=== PATIENT | female | born 1975 | race American Indian/Alaskan Native ===

== ENCOUNTER 2020-04-11 19:19 | Inpatient (IN) | payer MEDICAID ==
--- NOTE | 2020-04-11 19:57 | Emergency Department Report ---
ED Shortness of Breath HPI - General Stated Complaint: SANDRA Time Seen by Provider: 04/11/20 19:31 Source: patient Limitations: No Limitations - History of Present Illness Initial Comments: 45-year-old female with history of CHF, COPD on 2 L O2, DVT on Xarelto, presents to ED with shortness of breath. Patient states she has had dyspnea on exertion for 1.5 weeks, with associated orthopnea. Patient states she has been using breathing treatments without relief, thinks it may be her CHF. Patient reports mild cough. Patient denies fever, sore throat, chest pain, body aches, diarrhea, loss of smell or taste, exposure to anyone who has tested positive for COVID-19. PCP and filling technician: Maik MOREJON Complaint: shortness of breath -: week(s) (2) Severity: moderate Consistency: intermittent Improves With: rest, upright position Worsens With: lying flat, exertion Known History Of: COPD, congestive heart failure Treatments Prior to Arrival: bronchodilator - Related Data Home Oxygen Therapy: Yes Home Oxygen Amount: 2 Liters Allergies Allergy/AdvReac Type Severity Reaction Status Date / Time No Known Allergies Allergy Verified 04/11/20 22:16 ED Review of Systems ROS: Stated complaint: SANDRA Other details as noted in HPI Comment: All other systems reviewed and negative Constitutional: denies: chills, fever ENT: denies: throat pain Respiratory: cough, orthopnea, SOB with exertion Cardiovascular: denies: chest pain Gastrointestinal: denies: diarrhea Musculoskeletal: denies: myalgia ED Physical Exam - General General appearance: alert, in no apparent distress, obese - Head Head exam: Present: atraumatic, normocephalic - Eye Eye exam: Present: normal appearance, EOMI - ENT ENT exam: Present: mucous membranes moist - Neck Neck exam: Present: normal inspection - Respiratory Respiratory exam: Present: rales. Absent: respiratory distress - Cardiovascular Cardiovascular Exam: Present: regular rate, normal rhythm - GI/Abdominal GI/Abdominal exam: Present: soft. Absent: distended, tenderness - Extremities Exam Extremities exam: Present: normal inspection, pedal edema. Absent: calf tenderness - Neurological Exam Neurological exam: Present: alert, oriented X3 - Psychiatric Psychiatric exam: Present: normal affect, normal mood - Skin Skin exam: Present: warm, dry, intact, normal color ED Course Vital Signs 04/11/20 04/11/20 04/11/20 19:40 20:16 20:56 Temperature 99.0 F Pulse Rate 102 H 103 H 98 H Respiratory 20 26 H 22 Rate Blood Pressure 125/65 118/58 125/73 Blood Pressure 125/65 [Left] O2 Sat by Pulse 99 92 95 Oximetry 04/11/20 04/11/20 04/11/20 21:00 21:15 21:30 Temperature Pulse Rate 97 H 96 H 91 H Respiratory 23 21 22 Rate Blood Pressure 121/72 120/70 112/63 Blood Pressure [Left] O2 Sat by Pulse 93 100 99 Oximetry 04/11/20 04/11/20 04/11/20 21:46 22:00 22:46 Temperature Pulse Rate 96 H 89 92 H Respiratory 24 25 H 21 Rate Blood Pressure 112/63 126/76 120/75 Blood Pressure [Left] O2 Sat by Pulse 97 100 94 Oximetry 04/11/20 23:30 Temperature Pulse Rate 97 H Respiratory 19 Rate Blood Pressure 115/66 Blood Pressure [Left] O2 Sat by Pulse 95 Oximetry ED Medical Decision Making - Lab Data Result diagrams: 04/11/20 19:58 04/11/20 19:58 - EKG Data -: EKG Interpreted by Ar EKG shows normal: sinus rhythm, axis, intervals, QRS complexes, ST-T waves Rate: tachycardia (rate 101) - EKG Data Interpretation: no acute changes - Radiology Data Radiology results: report reviewed, image reviewed - Medical Decision Making 45 yo F w/ CHF exacerbation. Pt w/ MORALES, orthopnea. BNP elevated, pulm edema and effusion on CXR. Lasix given. Will admit to hospitalist, Dr [place], for further management. - Differential Diagnosis CHF, COPD, pneumonia Critical care attestation.: If time is entered above; I have spent that time in minutes in the direct care of this critically ill patient, excluding procedure time. ED Disposition Clinical Impression: Acute exacerbation of CHF (congestive heart failure) Disposition: OP ADMIT IP TO THIS HOSP Is pt being admited?: Yes Condition: Stable Time of Disposition: 21:25
[2020-04-11 20:14] LABS: Basophils % (Auto) 0.2 % (0.0-1.8); Eosinophils # (Auto) 0.1 K/mm3 (0.0-0.4); Eosinophils % (Auto) 1.7 % (0.0-4.3); Lymphocytes # (Auto) 1.2 K/mm3 (1.2-5.4); Lymphocytes % (Auto) 20.3 % (13.4-35.0); Mean Corpuscular HGB Conc 29 % (30-34); Mean Corpuscular Volume 82 fl (79-97); Monocytes # (Auto) 0.7 K/mm3 (0.0-0.8); Monocytes % (Auto) 11.1 % (0.0-7.3); Platelet Count 238 K/mm3 (140-440); Red Blood Count 4.09 M/mm3 (3.65-5.03); Red Cell Distribution Width 16.8 % (13.2-15.2)
[2020-04-11 20:16] LABS: Hematocrit 33.5 % (30.3-42.9); Hemoglobin 9.6 gm/dl (10.1-14.3)
[2020-04-11 20:27] LABS: INR 1.07 (0.87-1.13)
[2020-04-11 20:28] LABS: Partial Thromboplastin Time 28.6 Sec. (24.2-36.6)
[2020-04-11 20:36] LABS: BUN/Creatinine Ratio 21; Blood Urea Nitrogen 23 mg/dL (7-17); Calcium 8.8 mg/dL (8.4-10.2); Hemolysis Index 9
--- NOTE | 2020-04-11 20:56 | XRay Report ---
CHEST 1 VIEW INDICATION / CLINICAL INFORMATION: Shortness of breath. COMPARISON: None available. FINDINGS: SUPPORT DEVICES: None. HEART / MEDIASTINUM: Mild cardiomegaly. LUNGS / PLEURA: Hazy interstitial opacities in the lungs. No acute airspace consolidation. The pulmon zeus vessels are mildly prominent. Left diaphragm and costophrenic sulcus are poorly visualized. No pn eumothorax. IMPRESSION: Mild cardiomegaly and mild interstitial edema. A small left effusion is not excluded. Signer Name: Jacinto Fox MD Signed: 04/11/2020 8:51 PM Workstation Name: [id number]
[2020-04-11] MEDS ORDERED: FUROSEMIDE 40 MG/4 ML INJ IV ONE (21:13)
[2020-04-11] MEDS ORDERED: ONDANSETRON 4 MG/2 ML INJ IV PRN (22:01)
[2020-04-11] MEDS ORDERED: oxyCODONE /ACETAMINOPHEN 5-325MG TAB PO PRN (22:01)
--- NOTE | 2020-04-11 22:10 | History and Physical Report ---
History of Present Illness History of present illness: 45-year-old woman with a history of CHF, HIV, DVT on Xarelto, COPD comes emergency room for evaluation. The patient complains of shortness of breath for a little over 1 week associated with PND, orthopnea and dyspnea on exertion, decreased exercise tolerance. The patient has been noncompliant with her Lasix because it gives her cramping in her hands. Patient will be admitted for CHF ex acerbation, status post IV Lasix Review Of Systems: Constitutional: no weight loss, fever, chills Ears, eyes, nose, mouth and throat: no nasal congestion, no nasal discharge, no sinus pressure, blurry vision, diplopia Neck: No neck pain or rigidity. Cardiovascular: No palpitations, chest pain Respiratory: No cough Gastrointestinal: No hematochezia Genitourinary : no dysuria, frequency Musculoskeletal: no muscle ache , joint pain Integumentary: no rash, no pruritis Neurological: no parathesias, focal weakness Endocrine: no cold or heat intolerance, no polyuria or polydipsia Hematologic/Lymphatic: no easy bruising, no easy bleeding, no gland swelling Allergic/Immunologic: no urticaria, no angioedema. PAST MEDICAL HISTORY: CHF, HIV, DVT, COPD PAST SURGICAL HISTORY: Tumor removed from the chest SOCIAL HISTORY: Denies alcohol, tobacco, drugs FAMILY HISTORY: Hypertension Medications and Allergies Allergies Allergy/AdvReac Type Severity Reaction Status Date / Time No Known Allergies Allergy Verified 04/11/20 22:16 Active Meds: Active Medications Acetaminophen (Tylenol) 650 mg PO Q4H PRN PRN Reason: Pain MILD(1-3)/Fever >100.5/LEES Aspirin (Baby Aspirin) 81 mg PO DAILY [facility] Furosemide (Lasix) 40 mg IV BID@0600,1800 [facility] Ondansetron HCl (Zofran) 4 mg IV Q8H PRN PRN Reason: Nausea And Vomiting Oxycodone/Acetaminophen (Percocet 5/325) 1 tab PO Q6H PRN PRN Reason: Pain, Moderate (4-6) Sodium Chloride (Sodium Chloride Flush Syringe 10 Ml) 10 ml IV BID [facility] Sodium Chloride (Sodium Chloride Flush Syringe 10 Ml) 10 ml IV PRN PRN PRN Reason: LINE FLUSH Exam - Physical Exam Narrative exam: Gen. appearance: Patient lying in bed, no apparent distress HEENT: Normocephalic, atraumatic, pupils equally round and reactive to light, extraocular movement intact, and no sclericterus,. No JVD or thyromegaly or nodule,neck supple, no carotid bruit ,mucous membranes moist, no exudate or erythema Heart: S1, S2, regular rate and rhythm Lungs: Crackles bilaterally, breathing comfortable Abdomen: Positive bowel sounds, nontender, nondistended, no organomegaly Extremity: no edema, cyanosis, clubbing Skin: No rash, nodules, warm, dry Neuro: Cranial nerves II to XII intact, speech is fluent, moves extremities, sensory intact - Constitutional Vitals: Temp Pulse Resp BP Pulse Ox 99.0 F 96 H 24 112/63 97 04/11/20 19:40 04/11/20 21:46 04/11/20 21:46 04/11/20 21:46 04/11/20 21:46 HEART Score - HEART Score Troponin: Troponin T < 0.010 ng/mL (0.00-0.029) 04/11/20 19:58 Results - Labs CBC & Chem 7: 04/12/20 05:16 04/12/20 05:16 Labs: Abnormal lab results 04/11/20 04/11/20 Range/Units 19:58 19:58 Hgb 9.6 L (10.1-14.3) gm/dl MCH 24 L (28-32) pg MCHC 29 L (30-34) % RDW 16.8 H (13.2-15.2) % [place] % (Auto) 11.1 H (0.0-7.3) % Carbon Dioxide 35 H (22-30) mmol/L BUN 23 H (7-17) mg/dL Glucose 102 H (65-100) mg/dL NT-Pro-B Natriuret Pep 1101 H (0-450) pg/mL - Imaging and Cardiology EKG: image reviewed Chest x-ray: report reviewed Assessment and Plan Assessment Acute CHF exacerbation, probably diastolic dysfunction Diuresed with IV Lasix, start aspirin Monitor I's and O's, daily weights Check cardiac enzymes, echo, consult cardiology Blood pressure will not tolerate beta-trudi, DAVID inhibitor Noncompliance discussed with patient, verbalized understanding HIV, stable restart outpatient medications History of DVT, resume Xarelto DVT prophylax
[2020-04-12] MEDS: ACETAMINOPHEN 325 MG TAB PO PRN (02:34)
[2020-04-12] MEDS: ALBUTEROL 2.5 MG/3 ML NEBU IH PRN (02:51)
[2020-04-12 05:43] LABS: Basophils % (Auto) 0.8 % (0.0-1.8); Eosinophils # (Auto) 0.1 K/mm3 (0.0-0.4); Lymphocytes # (Auto) 1.3 K/mm3 (1.2-5.4); Lymphocytes % (Auto) 24.3 % (13.4-35.0); Mean Corpuscular HGB Conc 29 % (30-34); Mean Corpuscular Volume 81 fl (79-97); Monocytes # (Auto) 0.7 K/mm3 (0.0-0.8); Monocytes % (Auto) 12.3 % (0.0-7.3); Platelet Count 225 K/mm3 (140-440); Red Blood Count 4.25 M/mm3 (3.65-5.03); Red Cell Distribution Width 16.9 % (13.2-15.2)
[2020-04-12 05:59] LABS: Creatine Kinase MB 2.7 ng/mL (0.0-4.0)
[2020-04-12 06:17] LABS: Hematocrit 34.6 % (30.3-42.9)
[2020-04-12 06:22] LABS: BUN/Creatinine Ratio 20; Blood Urea Nitrogen 22 mg/dL (7-17); Hemolysis Index 6
[2020-04-12] MEDS: FUROSEMIDE 40 MG/4 ML INJ IV SCH ×2 (06:41→17:08)
[2020-04-12] MEDS ORDERED: RIVAROXABAN 10 MG TAB PO SCH (10:00)
[2020-04-12] MEDS: ASPIRIN 81 MG TAB CHEW PO SCH (10:13)
[2020-04-12] MEDS: ALBUTEROL 2.5 MG/3 ML NEBU IH SCH ×3 (10:31→21:17)
--- NOTE | 2020-04-12 11:11 | Consultation ---
Medications and Allergies Allergies Allergy/AdvReac Type Severity Reaction Status Date / Time No Known Allergies Allergy Verified 04/11/20 22:16 Active Meds: Active Medications Acetaminophen (Tylenol) 650 mg PO Q4H PRN PRN Reason: Pain MILD(1-3)/Fever >100.5/LEES Last Admin: 04/12/20 02:34 Dose: 650 mg Documented by: Albuterol (Proventil) 2.5 mg IH Q4HRT PRN PRN Reason: Shortness Of Breath Last Admin: 04/12/20 02:51 Dose: 2.5 mg Documented by: Albuterol (Proventil) 2.5 mg IH TIDRT [facility] Last Admin: 04/12/20 10:31 Dose: 2.5 mg Documented by: Aspirin (Baby Aspirin) 81 mg PO DAILY [facility] Last Admin: 04/12/20 10:13 Dose: 81 mg Documented by: Furosemide (Lasix) 40 mg IV BID@0600,1800 [facility] Last Admin: 04/12/20 06:41 Dose: 40 mg Documented by: Ondansetron HCl (Zofran) 4 mg IV Q8H PRN PRN Reason: Nausea And Vomiting Oxycodone/Acetaminophen (Percocet 5/325) 1 tab PO Q6H PRN PRN Reason: Pain, Moderate (4-6) Rivaroxaban (Xarelto) 10 mg PO QDAY [facility]; Protocol Last Admin: 04/12/20 10:13 Dose: 10 mg Documented by: Sodium Chloride (Sodium Chloride Flush Syringe 10 Ml) 10 ml IV BID [facility] Last Admin: 04/12/20 10:13 Dose: 10 ml Documented by: Sodium Chloride (Sodium Chloride Flush Syringe 10 Ml) 10 ml IV PRN PRN PRN Reason: LINE FLUSH Physical Examination Vital Signs Temp Pulse Resp BP Pulse Ox 99.0 F 102 H 20 125/65 99 04/11/20 19:40 04/11/20 19:40 04/11/20 19:40 04/11/20 19:40 04/11/20 19:40 Results 04/12/20 05:16 04/12/20 05:16 Cardiac Enzymes 04/11/20 04/12/20 Range/Units 22:32 05:16 CK-MB (CK-2) 3.0 2.7 (0.0-4.0) ng/mL Coagulation 04/11/20 Range/Units 19:58 PT 13.7 (12.2-14.9) Sec. INR 1.07 (0.87-1.13) APTT 28.6 (24.2-36.6) Sec. CBC 04/11/20 04/12/20 Range/Units 19:58 05:16 WBC 6.1 5.4 (4.5-11.0) K/mm3 RBC 4.09 4.25 (3.65-5.03) M/mm3 Hgb 9.6 L 10.0 L (10.1-14.3) gm/dl Hct 33.5 34.6 (30.3-42.9) % Plt Count 238 225 (140-440) K/mm3 Lymph # 1.2 1.3 (1.2-5.4) K/mm3 [place] # 0.7 0.7 (0.0-0.8) K/mm3 Eos # 0.1 0.1 (0.0-0.4) K/mm3 Baso # 0.0 0.0 (0.0-0.1) K/mm3 Comprehensive Metabolic Panel 04/11/20 04/12/20 Range/Units 19:58 05:16 Sodium 143 144 (137-145) mmol/L Potassium 4.9 4.8 (3.6-5.0) mmol/L Chloride 99.1 95.8 L (98-107) mmol/L Carbon Dioxide 35 H 40 H (22-30) mmol/L BUN 23 H 22 H (7-17) mg/dL Creatinine 1.1 1.1 (0.7-1.2) mg/dL Glucose 102 H 100 (65-100) mg/dL Calcium 8.8 9.0 (8.4-10.2) mg/dL Assessment and Plan pt seen and examined full consult dictated thx
--- NOTE | 2020-04-12 12:10 | Progress Note ---
Assessment and Plan Assessment and plan: --Acute on chronic diastolic CHF [preserved EF] Diuresed with IV Lasix, start aspirin Monitor I's and O's, daily weights Cardiology evaluation noted and appreciated Chest x-ray; mild cardiomegaly, mild interstitial edema Small left pleural effusion Echo; EF 60 to 65%, Mild concentric LVH Moderate pulmonary hypertension --HIV, stable resume antiretrovirals --History of DVT, resume Xarelto --Morbid obesity; BMI 66.2 Patient needs weight reduction when medically stable Patient would benefit by bariatric surgical consultation For weight reduction program upon discharge when stable --Obstructive sleep apnea; CPAP BiPAP at night --DVT prophylax; on Xarelto Monitor closely and adjust management as needed Plan of care reviewed with the patient and her nurse History Interval history: Patient seen and examined at the bedside this morning Patient's chart and medications reviewed Admitted with worsening shortness of breath acute on chronic CHF Patient feels slightly better continues to have shortness of breath Vital signs reviewed Hospitalist Physical - Constitutional Vitals: Temp Pulse Resp BP Pulse Ox 98.6 F 87 20 119/69 96 04/12/20 07:37 04/12/20 10:31 04/12/20 10:31 04/12/20 07:37 04/12/20 10:31 General appearance: Present: mild distress, well-nourished, obese (Morbidly obese) - EENT Eyes: Present: PERRL, EOM intact - Neck Neck: Present: supple, normal ROM - Respiratory Respiratory effort: normal Respiratory: bilateral: diminished, rhonchi, negative: rales, wheezing - Cardiovascular Rhythm: regular Heart Sounds: Present: S1 & S2 - Extremities Extremities: no ischemia Extremity abnormal: edema - Abdominal General gastrointestinal: soft, non-tender, non-distended, normal bowel sounds - Integumentary Integumentary: Present: clear, warm - Psychiatric Psychiatric: appropriate mood/affect, cooperative - Neurologic Neurologic: CNII-XII intact, moves all extremities HEART Score - HEART Score Troponin: Troponin T < 0.010 ng/mL (0.00-0.029) 04/12/20 05:16 Results - Labs CBC & Chem 7: 04/12/20 05:16 04/12/20 05:16 Labs: Laboratory Last Values WBC 5.4 K/mm3 (4.5-11.0) 04/12/20 05:16 RBC 4.25 M/mm3 (3.65-5.03) 04/12/20 05:16 Hgb 10.0 gm/dl (10.1-14.3) L 04/12/20 05:16 Hct 34.6 % (30.3-42.9) 04/12/20 05:16 MCV 81 fl (79-97) 04/12/20 05:16 MCH 24 pg (28-32) L 04/12/20 05:16 MCHC 29 % (30-34) L 04/12/20 05:16 RDW 16.9 % (13.2-15.2) H 04/12/20 05:16 Plt Count 225 K/mm3 (140-440) 04/12/20 05:16 Lymph % (Auto) 24.3 % (13.4-35.0) 04/12/20 05:16 [place] % (Auto) 12.3 % (0.0-7.3) H 04/12/20 05:16 Eos % (Auto) 2.0 % (0.0-4.3) 04/12/20 05:16 Baso % (Auto) 0.8 % (0.0-1.8) 04/12/20 05:16 Lymph # 1.3 K/mm3 (1.2-5.4) 04/12/20 05:16 [place] # 0.7 K/mm3 (0.0-0.8) 04/12/20 05:16 Eos # 0.1 K/mm3 (0.0-0.4) 04/12/20 05:16 Baso # 0.0 K/mm3 (0.0-0.1) 04/12/20 05:16 Seg Neutrophils % 60.6 % (40.0-70.0) 04/12/20 05:16 Seg Neutrophils # 3.3 K/mm3 (1.8-7.7) 04/12/20 05:16 PT 13.7 Sec. (12.2-14.9) 04/11/20 19:58 INR 1.07 (0.87-1.13) 04/11/20 19:58 APTT 28.6 Sec. (24.2-36.6) 04/11/20 19:58 Sodium 144 mmol/L (137-145) 04/12/20 05:16 Potassium 4.8 mmol/L (3.6-5.0) 04/12/20 05:16 Chloride 95.8 mmol/L (98-107) L 04/12/20 05:16 Carbon Dioxide 40 mmol/L (22-30) H 04/12/20 05:16 Anion Gap 13 mmol/L 04/12/20 05:16 BUN 22 mg/dL (7-17) H 04/12/20 05:16 Creatinine 1.1 mg/dL (0.7-1.2) 04/12/20 05:16 Estimated GFR > 60 ml/min 04/12/20 05:16 BUN/Creatinine Ratio 20 % 04/12/20 05:16 Glucose 100 mg/dL (65-100) 04/12/20 05:16 Calcium 9.0 mg/dL (8.4-10.2) 04/12/20 05:16 Total Creatine Kinase 78 units/L (30-135) 04/12/20 05:16 CK-MB (CK-2) 2.7 ng/mL (0.0-4.0) 04/12/20 05:16 CK-MB (CK-2) Rel Index 3.4 (0-4) 04/12/20 05:16 Troponin T < 0.010 ng/mL (0.00-0.029) 04/12/20 05:16 NT-Pro-B Natriuret Pep 1101 pg/mL (0-450) H 04/11/20 19:58 - Diagnostic Impressions Diagnostic Impressions: Echocardiogram 04/11/20 22:08 Transthoracic Echocardiogram Indication: Left Ventricle Function BP: 119/78 Conclusions *Mild concentric left ventricular hypertrophy is observed. *The estimated ejection fraction is 60-65%. *Abnormal left ventricular diastolic filling is observed, consistent with impaired relaxation. *The right ventricle is mildly dilated. *There is evidence of moderate pulmonary hypertension. *The right ventricular systolic pressure is calculated at 68 mmHg. *The pericardium appears normal. *There is mild to moderate mitral regurgitation. Findings Left Ventricle: The left ventricular chamber size is normal. Mild concentric left ventricular hypertrophy is observed. The estimated ejection fraction is 60-65%. Abnormal left ventricular diastolic function is observed. Abnormal left ventricular diastolic filling is observed, consistent with impaired relaxation. Left Atrium: The left atrium is normal in size with no visual thrombus identified. Right Ventricle: The right ventricle is mildly dilated. The right ventricular global systolic function is normal. Flattened in systole consistent with right ventricular pressure overload. Right Atrium: The right atrium is mildly dilated. Aortic Valve: The aortic valve is trileaflet. The leaflets are thin with normal excursion. There is no aortic stenosis or regurgitation present. Mitral Valve: The mitral valve leaflets are mildly thickened. There is mild to moderate mitral regurgitation. There is no evidence of mitral stenosis. Tricuspid Valve: The tricuspid valve leaflets are normal. There is moderate tricuspid regurgitation. The right ventricular systolic pressure is calculated at 68 mmHg. There is evidence of moderate pulmonary hypertension. Pulmonic Valve: The pulmonic valve appears normal. There is mild pulmonic regurgitation. There is no pulmonic stenosis. Pericardium: The pericardium appears normal. Aorta: The aorta appears normal. Pulmonary Artery: The main pulmonary artery appears normal. Venous: The inferior vena cava is dilated. There is a greater than 50% respiratory change in the inferior vena cava dimension. Measurements Chambers 2D Name Value Normal Range IVSd (2D) 1.13 cm (0.6 - 1.1) LVPWd (2D) 1.14 cm (0.6 - 1.1) LVIDd (2D) 4.66 cm (3.7 - 5.6) LVIDs (2D) 3.17 cm (2 - 3.8) LV FS (2D) 32.02 % - EF Teichholz (2D) 60.17 % - Ao root diameter (2D) 3.3 cm (2 - 3.7) Volumes/Mass Name Value Normal Range LA ESV SP 4CH (A/L) 62.29 ml - LA ESV SP 2CH (A/L) 96.38 ml - LA ESV BP (A/L) 77.66 ml - LA ESV BP (A/L) index 32.36 ml/m2 - LA ESV SP 4CH (MOD) 59.11 ml - LA ESV SP 2CH (MOD) 91.23 ml - LA ESV BP (MOD) 30.63 ml - LA ESV BP (MOD) index 73.63 ml/m2 - LV EDV SP 4CH (MOD) 128.25 ml - LV ESV SP 4CH (MOD) 46.14 ml - EF SP 4CH (MOD) 64.03 % - LV EDV SP 2CH (MOD) 120.45 ml - LV ESV SP 2CH (MOD) 49.64 ml - EF SP 2CH (MOD) 58.78 % - LV EDV BP 125.44 ml - LV ESV BP 47.91 ml - BP EF (MOD) 61.81 % - Diastolic/Systolic Function Name Value Normal Range MV E-wave Vmax 1.02 m/sec - MV deceleration time 130.3 msec - MV A-wave Vmax 1.19 m/sec - MV E:A ratio 0.85 ratio - Aortic Valve Name Value Normal Range AV Vmax 1.59 m/sec - AV VTI 26.86 cm - AV peak gradient 10.08 mmHg - AV mean gradient 5.68 mmHg - LVOT diameter 2 cm - LVOT Vmax 1.19 m/sec - LVOT VTI 21.31 cm - LVOT peak gradient 5.65 mmHg - LVOT mean gradient 2.84 mmHg - SV LVOT 66.74 ml - HARINDER (continuity Vmax) 2.34 cm2 - HARINDER (continuity VTI) 2.49 cm2 - Ascending Ao 3.19 cm - Tricuspid Valve Name Value Normal Range TV E-wave Vmax 0.69 m/sec - TR Vmax 3.9 m/sec - TR peak gradient 60.7 mmHg - RAP 8 mmHg - RVSP 68 mmHg - Pulmonic Valve/Qp:Qs Name Value Normal Range PV Vmax 1.43 m/sec - PV peak gradient 8.22 mmHg - [place] end-diastolic Vmax 1.74 m/sec - RVOT Vmax 0.82 m/sec - RVOT VTI 14.45 cm - RVOT peak gradient 2.66 mmHg - PV acceleration time 102.76 msec - Hirsch/IV: Voiding Method Toilet IV Catheter Type [Left Wrist] INT / Saline Lock Active Medications - Current Medications Current Medications: Generic Name Dose Route Start Last Admin Trade Name Freq PRN Reason Stop Dose Admin Acetaminophen 650 mg 04/11/20 22:01 04/12/20 02:34 Tylenol PO 650 mg Q4H PRN Administration Pain MILD(1-3)/Fever >100.5/LEES Albuterol 2.5 mg 04/12/20 02:33 04/12/20 02:51 Proventil IH 2.5 mg Q4HRT PRN Administration Shortness Of Breath Albuterol 2.5 mg 04/12/20 08:00 04/12/20 10:31 Proventil IH 2.5 mg TIDRT [facility] Administration Aspirin 81 mg 04/12/20 10:00 04/12/20 10:13 Baby Aspirin PO 81 mg DAILY [facility] Administration Furosemide 40 mg 04/12/20 06:00 04/12/20 06:41 Lasix IV 40 mg BID@0600,1800 [facility] Administration Ondansetron HCl 4 mg 04/11/20 22:01 Zofran IV Q8H PRN Nausea And Vomiting Oxycodone/Acetaminophen 1 tab 04/11/20 22:01 Percocet 5/325 PO Q6H PRN Pain, Moderate (4-6) Rivaroxaban 10 mg 04/12/20 10:00 04/12/20 10:13 Xarelto PO 10 mg QDAY [facility] Administration Protocol Sodium Chloride 10 ml 04/12/20 10:00 04/12/20 10:13 Sodium Chloride Flush Syringe 10 Ml IV 10 ml BID [facility] Administration Sodium Chloride 10 ml 04/11/20 22:01 Sodium Chloride Flush Syringe 10 Ml IV PRN PRN LINE FLUSH
--- NOTE | 2020-04-12 12:17 | Consultation ---
CARDIOLOGY CONSULTATION REASON FOR CONSULTATION: Advice and opinion regarding CHF. HISTORY OF PRESENT ILLNESS: The patient is a pleasant 45-year-old female with history of HIV, congestive heart failure, COPD, DVT, presents here for cardiac evaluation. She is usually seen at [place]. She has been recently noncompliant with her medications. She states she has had an enlarged heart in the past, on Xarelto for DVT. The patient complains of shortness of breath for over a week. She denies any chest pain. No abdominal pain, hematochezia, melena or hemoptysis. No rashes, blurred vision. Mild fatigue. PAST MEDICAL HISTORY: Congestive heart failure of unclear etiology, HIV, DVT, and COPD. PAST SURGICAL HISTORY: Tumor removed from chest, unclear details. SOCIAL HISTORY: Denies smoking or drinking. ALLERGIES: No known drug, food, or environmental allergies. FAMILY HISTORY: Hypertension. PHYSICAL EXAMINATION: VITAL SIGNS: Blood pressure is 119/69, the patient is afebrile. Tele reveals sinus rhythm in the 90s. No dysrhythmias. O2 sat is 99% on room air. GENERAL: This is a young -[place] female, in no apparent distress, oriented x3. HEENT: Sclerae are anicteric. NECK: Supple, no masses, no JVD. CHEST: Decreased breath sounds bilateral bases. Overall, moderate air movement. CARDIOVASCULAR: Regular, S1 and S2. ABDOMEN: Soft, nontender, and nondistended. Normoactive bowel sounds in 4 quadrants. No mass or bruits. EXTREMITIES: No cyanosis, clubbing, or edema. Good peripheral pulses. SKIN: Intact. No rashes. IMAGING STUDIES: Echocardiogram reveals EF of 60-65%, diastolic dysfunction, moderate pulmonary hypertension, [id number] mitral regurgitation. Chest x-ray from the Emergency Room reveals bilateral mild interstitial edema. No bony abnormalities. LABORATORY DATA: Reviewed. Troponin negative x2. MEDICATIONS: Inpatient and outpatient medications reviewed. ASSESSMENT: In summary, the patient is a pleasant 45-year-old female with acute on chronic heart failure with preserved ejection fraction, agree with IV Lasix, already on low dose Xarelto for history of deep venous thrombosis. We will watch her on Tele. Consider low dose AV trudi. Discussed the importance of lifestyle changes. Low salt diet and so forth, monitor I's and O's, daily weights. Blood pressure has been somewhat soft. We will continue to monitor. If it improves, we will consider adding calcium channel trudi for heart rate control. Thank you for this consultation. We will be happy to follow along with you. JOB# [id number] SBM/NTS
[2020-04-12] MEDS: carvediloL 12.5 MG TAB PO SCH (22:20)
[2020-04-13] MEDS: ACETAMINOPHEN 325 MG TAB PO PRN (02:11)
[2020-04-13] MEDS: ALBUTEROL 2.5 MG/3 ML NEBU IH PRN ×2 (04:14→23:20)
[2020-04-13] MEDS: FUROSEMIDE 40 MG/4 ML INJ IV SCH ×2 (06:28→17:12)
[2020-04-13] MEDS: ALBUTEROL 2.5 MG/3 ML NEBU IH SCH ×4 (07:34→20:42)
[2020-04-13] MEDS: carvediloL 12.5 MG TAB PO SCH ×2 (09:25→21:32)
[2020-04-13] MEDS: ASPIRIN 81 MG TAB CHEW PO SCH (09:25)
[2020-04-13] MEDS: SULFAMETHOXAZOLE/TRIMETHOPRIM 800/160MG DS TAB PO SCH (09:29)
[2020-04-13] MEDS: RIVAROXABAN 10 MG TAB PO SCH (09:30)
[2020-04-13] MEDS ORDERED: TENOFOV ALAFENAM PO SCH (10:00)
[2020-04-13] MEDS ORDERED: DOLUTEGRAVIR 50 MG TAB PO SCH (10:00)
[2020-04-13] MEDS ORDERED: EMTRICITABINE PO SCH (10:00)
--- NOTE | 2020-04-13 10:28 | Progress Note ---
Assessment and Plan clinically improving HFrEF w/ mod pHTN ?I/Os but swelling improved tte reviewed w/ pt cont IV lasix cont bb/noac (h/o DVT) wean o2 ambulate will now start avb due to soft bp - Patient Problems (1) Acute exacerbation of CHF (congestive heart failure) Current Visit: Yes Status: Acute Subjective Date of service: 04/13/20 Interval history: feels better, less sob Objective Vital Signs Temp Pulse Pulse Pulse Pulse Resp Resp 04/13/20 10:00 86 04/13/20 09:25 95 H 04/13/20 08:42 04/13/20 07:34 95 H 90 18 04/13/20 07:27 98.7 F 82 22 04/13/20 04:16 89 87 18 04/13/20 04:09 98.5 F 80 24 04/13/20 02:11 20 04/12/20 23:31 98.7 F 84 18 04/12/20 22:25 94 H 20 04/12/20 22:20 94 H 04/12/20 21:19 105 H 20 04/12/20 20:21 97.7 F 94 H 24 04/12/20 19:52 108 H 04/12/20 16:19 98.2 F 95 H 20 04/12/20 13:33 86 20 04/12/20 12:25 98.4 F 94 H 20 04/12/20 10:31 87 20 Resp BP Pulse Ox 04/13/20 10:00 04/13/20 09:25 100/59 04/13/20 08:42 94 04/13/20 07:34 18 04/13/20 07:27 100/59 92 04/13/20 04:16 18 04/13/20 04:09 107/59 95 04/13/20 02:11 04/12/20 23:31 108/53 90 04/12/20 22:25 100 04/12/20 22:20 130/81 04/12/20 21:19 97 04/12/20 20:21 130/81 96 04/12/20 19:52 04/12/20 16:19 136/77 92 04/12/20 13:33 04/12/20 12:25 139/76 96 04/12/20 10:31 96 - Imaging and Cardiology EKG: image reviewed
--- NOTE | 2020-04-13 11:16 | Progress Note ---
Assessment and Plan Assessment and plan: --Acute on chronic diastolic CHF [preserved EF] Diuresed with IV Lasix, start aspirin Monitor I's and O's, daily weights Cardiology evaluation noted and appreciated Chest x-ray; mild cardiomegaly, mild interstitial edema Small left pleural effusion Echo; EF 60 to 65%, Mild concentric LVH Moderate pulmonary hypertension --HIV, stable resume antiretrovirals --History of DVT, resume Xarelto --Morbid obesity; BMI 66.2 Patient needs weight reduction when medically stable Patient would benefit by bariatric surgical consultation For weight reduction program upon discharge when stable --Obstructive sleep apnea; CPAP BiPAP at night --DVT prophylax; on Xarelto Monitor closely and adjust management as needed Plan of care reviewed with the patient and her nurse History Interval history: Patient seen and examined at the bedside this morning Patient's chart and medications reviewed Feels slightly better, still has shortness of breath Alert awake oriented Vital signs reviewed Hospitalist Physical - Constitutional Vitals: Temp Pulse Resp BP Pulse Ox 98.7 F 86 22 100/59 94 04/13/20 07:27 04/13/20 10:40 04/13/20 10:40 04/13/20 09:25 04/13/20 08:42 General appearance: Present: no acute distress, well-nourished, obese (Morbidly obese) - EENT Eyes: Present: PERRL, EOM intact - Neck Neck: Present: supple, normal ROM - Respiratory Respiratory effort: normal Respiratory: bilateral: diminished, negative: rales, rhonchi, wheezing - Cardiovascular Rhythm: regular Heart Sounds: Present: S1 & S2 - Extremities Extremities: no ischemia, No edema - Abdominal General gastrointestinal: soft, non-tender, non-distended, normal bowel sounds - Integumentary Integumentary: Present: clear, warm - Psychiatric Psychiatric: appropriate mood/affect, cooperative - Neurologic Neurologic: CNII-XII intact, moves all extremities HEART Score - HEART Score Troponin: Troponin T < 0.010 ng/mL (0.00-0.029) 04/12/20 05:16 Results - Labs CBC & Chem 7: 04/12/20 05:16 04/12/20 05:16 Labs: Laboratory Last Values WBC 5.4 K/mm3 (4.5-11.0) 04/12/20 05:16 RBC 4.25 M/mm3 (3.65-5.03) 04/12/20 05:16 Hgb 10.0 gm/dl (10.1-14.3) L 04/12/20 05:16 Hct 34.6 % (30.3-42.9) 04/12/20 05:16 MCV 81 fl (79-97) 04/12/20 05:16 MCH 24 pg (28-32) L 04/12/20 05:16 MCHC 29 % (30-34) L 04/12/20 05:16 RDW 16.9 % (13.2-15.2) H 04/12/20 05:16 Plt Count 225 K/mm3 (140-440) 04/12/20 05:16 Lymph % (Auto) 24.3 % (13.4-35.0) 04/12/20 05:16 White % (Auto) 12.3 % (0.0-7.3) H 04/12/20 05:16 Eos % (Auto) 2.0 % (0.0-4.3) 04/12/20 05:16 Baso % (Auto) 0.8 % (0.0-1.8) 04/12/20 05:16 Lymph # 1.3 K/mm3 (1.2-5.4) 04/12/20 05:16 White # 0.7 K/mm3 (0.0-0.8) 04/12/20 05:16 Eos # 0.1 K/mm3 (0.0-0.4) 04/12/20 05:16 Baso # 0.0 K/mm3 (0.0-0.1) 04/12/20 05:16 Seg Neutrophils % 60.6 % (40.0-70.0) 04/12/20 05:16 Seg Neutrophils # 3.3 K/mm3 (1.8-7.7) 04/12/20 05:16 PT 13.7 Sec. (12.2-14.9) 04/11/20 19:58 INR 1.07 (0.87-1.13) 04/11/20 19:58 APTT 28.6 Sec. (24.2-36.6) 04/11/20 19:58 Sodium 144 mmol/L (137-145) 04/12/20 05:16 Potassium 4.8 mmol/L (3.6-5.0) 04/12/20 05:16 Chloride 95.8 mmol/L (98-107) L 04/12/20 05:16 Carbon Dioxide 40 mmol/L (22-30) H 04/12/20 05:16 Anion Gap 13 mmol/L 04/12/20 05:16 BUN 22 mg/dL (7-17) H 04/12/20 05:16 Creatinine 1.1 mg/dL (0.7-1.2) 04/12/20 05:16 Estimated GFR > 60 ml/min 04/12/20 05:16 BUN/Creatinine Ratio 20 % 04/12/20 05:16 Glucose 100 mg/dL (65-100) 04/12/20 05:16 Calcium 9.0 mg/dL (8.4-10.2) 04/12/20 05:16 Total Creatine Kinase 78 units/L (30-135) 04/12/20 05:16 CK-MB (CK-2) 2.7 ng/mL (0.0-4.0) 04/12/20 05:16 CK-MB (CK-2) Rel Index 3.4 (0-4) 04/12/20 05:16 Troponin T < 0.010 ng/mL (0.00-0.029) 04/12/20 05:16 NT-Pro-B Natriuret Pep 1101 pg/mL (0-450) H 04/11/20 19:58 - Diagnostic Impressions Diagnostic Impressions: Echocardiogram 04/11/20 22:08 Transthoracic Echocardiogram Indication: Left Ventricle Function BP: 119/78 Conclusions *Mild concentric left ventricular hypertrophy is observed. *The estimated ejection fraction is 60-65%. *Abnormal left ventricular diastolic filling is observed, consistent with impaired relaxation. *The right ventricle is mildly dilated. *There is evidence of moderate pulmonary hypertension. *The right ventricular systolic pressure is calculated at 68 mmHg. *The pericardium appears normal. *There is mild to moderate mitral regurgitation. Findings Left Ventricle: The left ventricular chamber size is normal. Mild concentric left ventricular hypertrophy is observed. The estimated ejection fraction is 60-65%. Abnormal left ventricular diastolic function is observed. Abnormal left ventricular diastolic filling is observed, consistent with impaired relaxation. Left Atrium: The left atrium is normal in size with no visual thrombus identified. Right Ventricle: The right ventricle is mildly dilated. The right ventricular global systolic function is normal. Flattened in systole consistent with right ventricular pressure overload. Right Atrium: The right atrium is mildly dilated. Aortic Valve: The aortic valve is trileaflet. The leaflets are thin with normal excursion. There is no aortic stenosis or regurgitation present. Mitral Valve: The mitral valve leaflets are mildly thickened. There is mild to moderate mitral regurgitation. There is no evidence of mitral stenosis. Tricuspid Valve: The tricuspid valve leaflets are normal. There is moderate tricuspid regurgitation. The right ventricular systolic pressure is calculated at 68 mmHg. There is evidence of moderate pulmonary hypertension. Pulmonic Valve: The pulmonic valve appears normal. There is mild pulmonic regurgitation. There is no pulmonic stenosis. Pericardium: The pericardium appears normal. Aorta: The aorta appears normal. Pulmonary Artery: The main pulmonary artery appears normal. Venous: The inferior vena cava is dilated. There is a greater than 50% respiratory change in the inferior vena cava dimension. Measurements Chambers 2D Name Value Normal Range IVSd (2D) 1.13 cm (0.6 - 1.1) LVPWd (2D) 1.14 cm (0.6 - 1.1) LVIDd (2D) 4.66 cm (3.7 - 5.6) LVIDs (2D) 3.17 cm (2 - 3.8) LV FS (2D) 32.02 % - EF Teichholz (2D) 60.17 % - Ao root diameter (2D) 3.3 cm (2 - 3.7) Volumes/Mass Name Value Normal Range LA ESV SP 4CH (A/L) 62.29 ml - LA ESV SP 2CH (A/L) 96.38 ml - LA ESV BP (A/L) 77.66 ml - LA ESV BP (A/L) index 32.36 ml/m2 - LA ESV SP 4CH (MOD) 59.11 ml - LA ESV SP 2CH (MOD) 91.23 ml - LA ESV BP (MOD) 30.63 ml - LA ESV BP (MOD) index 73.63 ml/m2 - LV EDV SP 4CH (MOD) 128.25 ml - LV ESV SP 4CH (MOD) 46.14 ml - EF SP 4CH (MOD) 64.03 % - LV EDV SP 2CH (MOD) 120.45 ml - LV ESV SP 2CH (MOD) 49.64 ml - EF SP 2CH (MOD) 58.78 % - LV EDV BP 125.44 ml - LV ESV BP 47.91 ml - BP EF (MOD) 61.81 % - Diastolic/Systolic Function Name Value Normal Range MV E-wave Vmax 1.02 m/sec - MV deceleration time 130.3 msec - MV A-wave Vmax 1.19 m/sec - MV E:A ratio 0.85 ratio - Aortic Valve Name Value Normal Range AV Vmax 1.59 m/sec - AV VTI 26.86 cm - AV peak gradient 10.08 mmHg - AV mean gradient 5.68 mmHg - LVOT diameter 2 cm - LVOT Vmax 1.19 m/sec - LVOT VTI 21.31 cm - LVOT peak gradient 5.65 mmHg - LVOT mean gradient 2.84 mmHg - SV LVOT 66.74 ml - HARINDER (continuity Vmax) 2.34 cm2 - HARINDER (continuity VTI) 2.49 cm2 - Ascending Ao 3.19 cm - Tricuspid Valve Name Value Normal Range TV E-wave Vmax 0.69 m/sec - TR Vmax 3.9 m/sec - TR peak gradient 60.7 mmHg - RAP 8 mmHg - RVSP 68 mmHg - Pulmonic Valve/Qp:Qs Name Value Normal Range PV Vmax 1.43 m/sec - PV peak gradient 8.22 mmHg - TX end-diastolic Vmax 1.74 m/sec - RVOT Vmax 0.82 m/sec - RVOT VTI 14.45 cm - RVOT peak gradient 2.66 mmHg - PV acceleration time 102.76 msec - Hirsch/IV: Voiding Method Toilet IV Catheter Type [Left Wrist] INT / Saline Lock Active Medications - Current Medications Current Medications: Generic Name Dose Route Start Last Admin Trade Name Freq PRN Reason Stop Dose Admin Acetaminophen 650 mg 04/11/20 22:01 04/13/20 02:11 Tylenol PO 650 mg Q4H PRN Administration Pain MILD(1-3)/Fever >100.5/LEES Albuterol 2.5 mg 04/12/20 02:33 04/13/20 04:14 Proventil IH 2.5 mg Q4HRT PRN Administration Shortness Of Breath Albuterol 2.5 mg 04/12/20 08:00 04/13/20 10:38 Proventil IH 2.5 mg TIDRT LAWRENCE Administration Aspirin 81 mg 04/12/20 10:00 04/13/20 09:25 Baby Aspirin PO 81 mg DAILY LAWRENCE Administration Carvedilol 12.5 mg 04/12/20 22:00 04/13/20 09:25 Coreg PO 12.5 mg BID LAWRENCE Administration Furosemide 40 mg 04/12/20 06:00 04/13/20 06:28 Lasix IV 40 mg BID@0600,1800 LAWRENCE Administration Miscellaneous Medication 200 mg 04/13/20 10:00 Emtricitabine/Tenofov Alafenam [Descovy 200-25 Mg Tablet] PO DAILY LAWRENCE Ondansetron HCl 4 mg 04/11/20 22:01 Zofran IV Q8H PRN Nausea And Vomiting Oxycodone/Acetaminophen 1 tab 04/11/20 22:01 Percocet 5/325 PO Q6H PRN Pain, Moderate (4-6) Rivaroxaban 10 mg 04/13/20 10:00 04/13/20 09:30 Xarelto PO 10 mg QDAY LAWRENCE Administration Protocol Sodium Chloride 10 ml 04/12/20 10:00 04/13/20 09:26 Sodium Chloride Flush Syringe 10 Ml IV 10 ml BID LAWRENCE Administration Sodium Chloride 10 ml 04/11/20 22:01 Sodium Chloride Flush Syringe 10 Ml IV PRN PRN LINE FLUSH Trimethoprim/Sulfamethoxazole 1 each 04/13/20 10:00 04/13/20 09:29 Bactrim Ds PO 1 each DAILY LAWRENCE Administration
[2020-04-14] MEDS: FUROSEMIDE 40 MG/4 ML INJ IV SCH ×2 (06:26→18:02)
[2020-04-14] MEDS: ALBUTEROL 2.5 MG/3 ML NEBU IH SCH ×3 (07:31→20:31)
[2020-04-14] MEDS: RIVAROXABAN 10 MG TAB PO SCH (09:06)
[2020-04-14] MEDS: carvediloL 12.5 MG TAB PO SCH ×2 (09:07→21:15)
[2020-04-14] MEDS: SULFAMETHOXAZOLE/TRIMETHOPRIM 800/160MG DS TAB PO SCH (09:07)
[2020-04-14] MEDS: ASPIRIN 81 MG TAB CHEW PO SCH (09:07)
--- NOTE | 2020-04-14 11:52 | Progress Note ---
Assessment and Plan clinically improving HFrEF w/ mod pHTN * near euvolemia * will check v/q scan in am to exclude chronic thrombo-embolic disease in the milieu of DVT history/pHTN * on noac (dvt dosing) ?I/Os but swelling improved cont IV lasix cont bb/noac (h/o DVT) wean o2 ambulate will not start avb due to soft bp pt eval (pt on home o2) - Patient Problems (1) Acute exacerbation of CHF (congestive heart failure) Current Visit: Yes Status: Acute Subjective Date of service: 04/14/20 Interval history: feels better than yest, less sob Objective Vital Signs Temp Pulse Pulse Pulse Resp Resp BP 04/14/20 10:00 86 20 04/14/20 09:07 86 105/56 04/14/20 07:45 93 H 19 04/14/20 07:41 97.9 F 86 18 105/56 04/14/20 07:05 98 H 04/14/20 04:01 98.0 F 93 H 19 132/78 04/13/20 23:33 94 H 20 04/13/20 23:28 98.4 F 80 18 128/56 04/13/20 22:35 92 H 20 04/13/20 21:32 92 H 134/93 04/13/20 20:43 04/13/20 20:42 92 H 18 04/13/20 19:37 98.4 F 94 H 18 134/93 04/13/20 19:24 98 H 04/13/20 16:05 98.5 F 85 20 110/70 04/13/20 15:14 85 04/13/20 14:30 83 18 04/13/20 12:36 98.8 F 87 20 125/69 Pulse Ox 04/14/20 10:00 96 04/14/20 09:07 04/14/20 07:45 94 04/14/20 07:41 98 04/14/20 07:05 04/14/20 04:01 73 L 04/13/20 23:33 04/13/20 23:28 95 04/13/20 22:35 94 04/13/20 21:32 04/13/20 20:43 94 04/13/20 20:42 04/13/20 19:37 96 04/13/20 19:24 04/13/20 16:05 93 04/13/20 15:14 04/13/20 14:30 04/13/20 12:36 92 - Imaging and Cardiology EKG: image reviewed
--- NOTE | 2020-04-14 18:49 | Progress Note ---
Assessment and Plan Assessment and plan: --Acute on chronic diastolic CHF [preserved EF] Diuresed with IV Lasix, start aspirin Monitor I's and O's, daily weights Cardiology evaluation noted and appreciated Chest x-ray; mild cardiomegaly, mild interstitial edema Small left pleural effusion Echo; EF 60 to 65%, Mild concentric LVH Moderate pulmonary hypertension --HIV, stable resume antiretrovirals --History of DVT, resume Xarelto Patient has pulmonary hypertension Probably secondary to chronic PE We will check CTA chest tomorrow --Morbid obesity; BMI 66.2 Patient needs weight reduction when medically stable Patient would benefit by bariatric surgical consultation For weight reduction program upon discharge when stable --Obstructive sleep apnea; CPAP BiPAP at night --DVT prophylax; on Xarelto Monitor closely and adjust management as needed Plan of care reviewed with the patient and her nurse Brief history; 45-year-old morbidly obese female patient with chronic diastolic CHF, HIV, DVT on Xarelto, COPD was admitted through emergency room with worsening shortness of breath orthopnea, paroxysmal nocturnal dyspnea, patient was admitted managed appropriately, evaluated by cardiology, medications optimized, echo revealed moderate pulmonary hypertension in the setting of positive DVT on Coumadin. Possible chronic PE, check CTA chest tomorrow. History Interval history: Patient is seen and examined at the bedside, Patient's chart and medications reviewed Morbidly obese female patient Complains of mild shortness of breath And fatigue, denies chest pain Vital signs noted Hospitalist Physical - Constitutional Vitals: Temp Pulse Resp BP Pulse Ox 97.9 F 86 18 121/59 94 04/14/20 11:35 04/14/20 14:03 04/14/20 14:03 04/14/20 13:44 04/14/20 11:35 General appearance: Present: no acute distress, well-nourished, obese (Morbidly obese) - EENT Eyes: Present: PERRL, EOM intact - Neck Neck: Present: supple, normal ROM - Respiratory Respiratory effort: normal Respiratory: bilateral: diminished, negative: rales, rhonchi, wheezing - Cardiovascular Rhythm: regular Heart Sounds: Present: S1 & S2 - Extremities Extremities: no ischemia, No edema Extremity abnormal: edema - Abdominal General gastrointestinal: soft, non-tender, non-distended, normal bowel sounds - Integumentary Integumentary: Present: clear, warm - Psychiatric Psychiatric: appropriate mood/affect, cooperative - Neurologic Neurologic: CNII-XII intact, moves all extremities HEART Score - HEART Score Troponin: Troponin T < 0.010 ng/mL (0.00-0.029) 04/12/20 05:16 Results - Labs CBC & Chem 7: 04/12/20 05:16 04/12/20 05:16 Labs: Laboratory Last Values WBC 5.4 K/mm3 (4.5-11.0) 04/12/20 05:16 RBC 4.25 M/mm3 (3.65-5.03) 04/12/20 05:16 Hgb 10.0 gm/dl (10.1-14.3) L 04/12/20 05:16 Hct 34.6 % (30.3-42.9) 04/12/20 05:16 MCV 81 fl (79-97) 04/12/20 05:16 MCH 24 pg (28-32) L 04/12/20 05:16 MCHC 29 % (30-34) L 04/12/20 05:16 RDW 16.9 % (13.2-15.2) H 04/12/20 05:16 Plt Count 225 K/mm3 (140-440) 04/12/20 05:16 Lymph % (Auto) 24.3 % (13.4-35.0) 04/12/20 05:16 Linn % (Auto) 12.3 % (0.0-7.3) H 04/12/20 05:16 Eos % (Auto) 2.0 % (0.0-4.3) 04/12/20 05:16 Baso % (Auto) 0.8 % (0.0-1.8) 04/12/20 05:16 Lymph # 1.3 K/mm3 (1.2-5.4) 04/12/20 05:16 [place]inn # 0.7 K/mm3 (0.0-0.8) 04/12/20 05:16 Eos # 0.1 K/mm3 (0.0-0.4) 04/12/20 05:16 Baso # 0.0 K/mm3 (0.0-0.1) 04/12/20 05:16 Seg Neutrophils % 60.6 % (40.0-70.0) 04/12/20 05:16 Seg Neutrophils # 3.3 K/mm3 (1.8-7.7) 04/12/20 05:16 PT 13.7 Sec. (12.2-14.9) 04/11/20 19:58 INR 1.07 (0.87-1.13) 04/11/20 19:58 APTT 28.6 Sec. (24.2-36.6) 04/11/20 19:58 Sodium 144 mmol/L (137-145) 04/12/20 05:16 Potassium 4.8 mmol/L (3.6-5.0) 04/12/20 05:16 Chloride 95.8 mmol/L (98-107) L 04/12/20 05:16 Carbon Dioxide 40 mmol/L (22-30) H 04/12/20 05:16 Anion Gap 13 mmol/L 04/12/20 05:16 BUN 22 mg/dL (7-17) H 04/12/20 05:16 Creatinine 1.1 mg/dL (0.7-1.2) 04/12/20 05:16 Estimated GFR > 60 ml/min 04/12/20 05:16 BUN/Creatinine Ratio 20 % 04/12/20 05:16 Glucose 100 mg/dL (65-100) 04/12/20 05:16 Calcium 9.0 mg/dL (8.4-10.2) 04/12/20 05:16 Total Creatine Kinase 78 units/L (30-135) 04/12/20 05:16 CK-MB (CK-2) 2.7 ng/mL (0.0-4.0) 04/12/20 05:16 CK-MB (CK-2) Rel Index 3.4 (0-4) 04/12/20 05:16 Troponin T < 0.010 ng/mL (0.00-0.029) 04/12/20 05:16 NT-Pro-B Natriuret Pep 1101 pg/mL (0-450) H 04/11/20 19:58 - Diagnostic Impressions Diagnostic Impressions: Echocardiogram 04/11/20 22:08 Transthoracic Echocardiogram Indication: Left Ventricle Function BP: 119/78 Conclusions *Mild concentric left ventricular hypertrophy is observed. *The estimated ejection fraction is 60-65%. *Abnormal left ventricular diastolic filling is observed, consistent with impaired relaxation. *The right ventricle is mildly dilated. *There is evidence of moderate pulmonary hypertension. *The right ventricular systolic pressure is calculated at 68 mmHg. *The pericardium appears normal. *There is mild to moderate mitral regurgitation. Findings Left Ventricle: The left ventricular chamber size is normal. Mild concentric left ventricular hypertrophy is observed. The estimated ejection fraction is 60-65%. Abnormal left ventricular diastolic function is observed. Abnormal left ventricular diastolic filling is observed, consistent with impaired relaxation. Left Atrium: The left atrium is normal in size with no visual thrombus identified. Right Ventricle: The right ventricle is mildly dilated. The right ventricular global systolic function is normal. Flattened in systole consistent with right ventricular pressure overload. Right Atrium: The right atrium is mildly dilated. Aortic Valve: The aortic valve is trileaflet. The leaflets are thin with normal excursion. There is no aortic stenosis or regurgitation present. Mitral Valve: The mitral valve leaflets are mildly thickened. There is mild to moderate mitral regurgitation. There is no evidence of mitral stenosis. Tricuspid Valve: The tricuspid valve leaflets are normal. There is moderate tricuspid regurgitation. The right ventricular systolic pressure is calculated at 68 mmHg. There is evidence of moderate pulmonary hypertension. Pulmonic Valve: The pulmonic valve appears normal. There is mild pulmonic regurgitation. There is no pulmonic stenosis. Pericardium: The pericardium appears normal. Aorta: The aorta appears normal. Pulmonary Artery: The main pulmonary artery appears normal. Venous: The inferior vena cava is dilated. There is a greater than 50% respiratory change in the inferior vena cava dimension. Measurements Chambers 2D Name Value Normal Range IVSd (2D) 1.13 cm (0.6 - 1.1) LVPWd (2D) 1.14 cm (0.6 - 1.1) LVIDd (2D) 4.66 cm (3.7 - 5.6) LVIDs (2D) 3.17 cm (2 - 3.8) LV FS (2D) 32.02 % - EF Teichholz (2D) 60.17 % - Ao root diameter (2D) 3.3 cm (2 - 3.7) Volumes/Mass Name Value Normal Range LA ESV SP 4CH (A/L) 62.29 ml - LA ESV SP 2CH (A/L) 96.38 ml - LA ESV BP (A/L) 77.66 ml - LA ESV BP (A/L) index 32.36 ml/m2 - LA ESV SP 4CH (MOD) 59.11 ml - LA ESV SP 2CH (MOD) 91.23 ml - LA ESV BP (MOD) 30.63 ml - LA ESV BP (MOD) index 73.63 ml/m2 - LV EDV SP 4CH (MOD) 128.25 ml - LV ESV SP 4CH (MOD) 46.14 ml - EF SP 4CH (MOD) 64.03 % - LV EDV SP 2CH (MOD) 120.45 ml - LV ESV SP 2CH (MOD) 49.64 ml - EF SP 2CH (MOD) 58.78 % - LV EDV BP 125.44 ml - LV ESV BP 47.91 ml - BP EF (MOD) 61.81 % - Diastolic/Systolic Function Name Value Normal Range MV E-wave Vmax 1.02 m/sec - MV deceleration time 130.3 msec - MV A-wave Vmax 1.19 m/sec - MV E:A ratio 0.85 ratio - Aortic Valve Name Value Normal Range AV Vmax 1.59 m/sec - AV VTI 26.86 cm - AV peak gradient 10.08 mmHg - AV mean gradient 5.68 mmHg - LVOT diameter 2 cm - LVOT Vmax 1.19 m/sec - LVOT VTI 21.31 cm - LVOT peak gradient 5.65 mmHg - LVOT mean gradient 2.84 mmHg - SV LVOT 66.74 ml - HARINDER (continuity Vmax) 2.34 cm2 - HARINDER (continuity VTI) 2.49 cm2 - Ascending Ao 3.19 cm - Tricuspid Valve Name Value Normal Range TV E-wave Vmax 0.69 m/sec - TR Vmax 3.9 m/sec - TR peak gradient 60.7 mmHg - RAP 8 mmHg - RVSP 68 mmHg - Pulmonic Valve/Qp:Qs Name Value Normal Range PV Vmax 1.43 m/sec - PV peak gradient 8.22 mmHg - WI end-diastolic Vmax 1.74 m/sec - RVOT Vmax 0.82 m/sec - RVOT VTI 14.45 cm - RVOT peak gradient 2.66 mmHg - PV acceleration time 102.76 msec - Hirsch/IV: Voiding Method Toilet IV Catheter Type [Left Wrist] INT / Saline Lock Active Medications - Current Medications Current Medications: Generic Name Dose Route Start Last Admin Trade Name Shira PRN Reason Stop Dose Admin Acetaminophen 650 mg 04/11/20 22:01 04/13/20 02:11 Tylenol PO 650 mg Q4H PRN Administration Pain MILD(1-3)/Fever >100.5/LEES Albuterol 2.5 mg 04/12/20 02:33 04/13/20 23:20 Proventil IH 2.5 mg Q4HRT PRN Administration Shortness Of Breath Albuterol 2.5 mg 04/12/20 08:00 04/14/20 14:03 Proventil IH 2.5 mg TIDRT LAWRENCE Administration Aspirin 81 mg 04/12/20 10:00 04/14/20 09:07 Baby Aspirin PO 81 mg DAILY LAWRENCE Administration Carvedilol 12.5 mg 04/12/20 22:00 04/14/20 09:07 Coreg PO 12.5 mg BID LAWRENCE Administration Furosemide 40 mg 04/12/20 06:00 04/14/20 18:02 Lasix IV 40 mg BID@0600,1800 LAWRENCE Administration Miscellaneous Medication 200 mg 04/13/20 10:00 Emtricitabine/Tenofov Alafenam [Descovy 200-25 Mg Tablet] PO DAILY LAWRENCE Ondansetron HCl 4 mg 04/11/20 22:01 Zofran IV Q8H PRN Nausea And Vomiting Oxycodone/Acetaminophen 1 tab 04/11/20 22:01 Percocet 5/325 PO Q6H PRN Pain, Moderate (4-6) Rivaroxaban 10 mg 04/13/20 10:00 04/14/20 09:06 Xarelto PO 10 mg QDAY LAWRENCE Administration Protocol Sodium Chloride 10 ml 04/12/20 10:00 04/14/20 09:07 Sodium Chloride Flush Syringe 10 Ml IV 10 ml BID LAWRENCE Administration Sodium Chloride 10 ml 04/11/20 22:01 Sodium Chloride Flush Syringe 10 Ml IV PRN PRN LINE FLUSH Trimethoprim/Sulfamethoxazole 1 each 04/13/20 10:00 04/14/20 09:07 Bactrim Ds PO 1 each DAILY LAWRENCE Administration
[2020-04-15] MEDS: ACETAMINOPHEN 325 MG TAB PO PRN ×2 (01:21→05:23)
[2020-04-15] MEDS: FUROSEMIDE 40 MG/4 ML INJ IV SCH ×2 (05:14→17:15)
[2020-04-15] MEDS: ALBUTEROL 2.5 MG/3 ML NEBU IH SCH ×3 (09:24→20:48)
[2020-04-15] MEDS: carvediloL 12.5 MG TAB PO SCH ×2 (09:46→21:45)
[2020-04-15] MEDS: RIVAROXABAN 10 MG TAB PO SCH (09:46)
[2020-04-15] MEDS: ASPIRIN 81 MG TAB CHEW PO SCH (09:46)
[2020-04-15] MEDS: SULFAMETHOXAZOLE/TRIMETHOPRIM 800/160MG DS TAB PO SCH (09:46)
--- NOTE | 2020-04-15 11:03 | Progress Note ---
Assessment and Plan tte reviewed - EF 60-65%, impaired relaxation, mild LVH, RV mildy dilated, mod pulm HTN with RVSP 68mmHg, mod TR, mild to mod MR. Eleuterio appears clinically improving. She is pending V/Q scan today to exclude chronic thrombo-embolic disease in the milieu of DVT history/pHTN. Cont Xarelto. Of note, pt has h/o COPD and chronic respiratory failure requiring home O2, morbid obesity, BRIAN. Wean O2 and encourage increased activity/ambulation - PT consult ordered. Cont IV lasix. Anticipate d/c in AM. The patient has been seen in conjunction with Dr. Brady who agrees with the assessment and plan of care. - Patient Problems (1) Acute heart failure with preserved ejection fraction (HFpEF) Current Visit: Yes Status: Acute (2) Acute and chronic respiratory failure Current Visit: Yes Status: Acute (3) COPD (chronic obstructive pulmonary disease) Current Visit: Yes Status: Chronic (4) HTN (hypertension) Current Visit: Yes Status: Chronic (5) History of DVT (deep vein thrombosis) Current Visit: Yes Status: Chronic (6) Sleep apnea Current Visit: Yes Status: Chronic (7) Morbid obesity Current Visit: Yes Status: Chronic (8) HIV (human immunodeficiency virus infection) Current Visit: Yes Status: Chronic Subjective Date of service: 04/15/20 Principal diagnosis: SOB; HF Interval history: pt resting in bed, SOB improving, still with MORALES, wearing O2 via NC. in SR on tele. Objective Last Vital Signs Temp 97.6 F 04/15/20 07:35 Pulse 77 04/15/20 10:00 Resp 18 04/15/20 07:35 BP 85/49 04/15/20 07:35 Pulse Ox 96 04/15/20 03:26 - Physical Examination General: No Apparent Distress HEENT: Positive: PERRL, Normocephaly, Mucus Membranes Moist Neck: Positive: neck supple, trachea midline Cardiac: Positive: Reg Rate and Rhythm, S1/S2 Lungs: Positive: Decreased Breath Sounds, Oxygen Neuro: Positive: Grossly Intact Abdomen: Negative: Tender Skin: Negative: Rash Musculoskeletal: No Pain Extremities: Absent: edema - Imaging and Cardiology EKG: report reviewed, image reviewed Echo: report reviewed - Telemetry EKG Rhythm: Sinus Rhythm
[2020-04-15 11:24] LABS: BUN/Creatinine Ratio 29; Blood Urea Nitrogen 29 mg/dL (7-17); Calcium 9.7 mg/dL (8.4-10.2); Hemolysis Index 4
[2020-04-15] MEDS: IPRATROPIUM/ALBUTEROL SULFATE 3 ML AMPUL.NEB IH SCH ×2 (13:01→20:24)
--- NOTE | 2020-04-15 15:17 | Nuclear Medicine Report ---
Perfusion scan of the lungs INDICATION: Chest pain and shortness of breath TECHNIQUE: The patient was administered 4.5 mCi of technetium 99 MAA and perfusion phase only perform ed FINDINGS: There is slightly inhomogeneous perfusion to both lower lobes but no focal segmental or sub segmental perfusion defects and the probability of embolus is considered low. Signer Name: Donte Alexis MD Signed: 04/15/2020 3:12 PM Workstation Name: [id number]
--- NOTE | 2020-04-15 15:18 | XRay Report ---
CHEST 1 VIEW 2:38 PM INDICATION / CLINICAL INFORMATION: Shortness of breath and DVT. COMPARISON: 04/11/2020. FINDINGS: SUPPORT DEVICES: None. HEART / MEDIASTINUM: Median sternotomy and cardiomegaly are again noted. Pulmonary vasculature is nor mal. LUNGS / PLEURA: Mild peribronchial thickening centrally is chronic and unchanged. No pneumothorax. ADDITIONAL FINDINGS: No significant additional findings. IMPRESSION: No significant interval change. Signer Name: Sarwat Sosa MD Signed: 04/15/2020 3:14 PM Workstation Name: [id number]
--- NOTE | 2020-04-15 16:02 | Progress Note ---
Assessment and Plan /Acute on chronic respiratory failure, POA - due to underlying COPD and CHF - pt on 2 l home O2 - cont to treat underlying cause, wean off o2 as tolerated /Acute on chronic diastolic CHF [preserved EF] Diurese with IV Lasix, cont aspirin Monitor I's and O's, daily weights Cardiology evaluation noted and appreciated Chest x-ray; mild cardiomegaly, mild interstitial edema Small left pleural effusion Echo; EF 60 to 65%, Mild concentric LVH Moderate pulmonary hypertension /HIV, stable resumed antiretrovirals /History of DVT, resumed Xarelto Patient has pulmonary hypertension /COPD with home O2 cont nebs, wean of nebs as tolerated / Moderate pulmonary hypertension - outpt f/u with pulmonary /Morbid obesity; BMI 66.2 Patient would benefit by bariatric surgical consultation For weight reduction program upon discharge when stable /Obstructive sleep apnea; CPAP at night --DVT prophylax; on Xarelto Monitor closely and adjust management as needed Plan of care reviewed with the patient and her nurse 04/15: Resumed care. 2d echo - EF 60-65%. Pt appears clinically improving. V/Q scan today excluded chronic thrombo-embolic disease, no DVT on LE doppler. Wean O2 and PT consult ordered. Cont IV lasix. Anticipate d/c in AM if clears by cardiology. Brief history; 45-year-old morbidly obese female patient with chronic diastolic CHF, HIV, DVT on Xarelto, COPD on home O2 was admitted through emergency room with worsening shortness of breath orthopnea, paroxysmal nocturnal dyspnea, patient was admitted managed appropriately, evaluated by cardiology, medications optimized, echo revealed moderate pulmonary hypertension in the setting of positive DVT on Coumadin. VQ scan showed no PE, lower extremity Doppler is negative for DVT. Cardiology recommended to continue diuresis. Consulted physical therapy. Possible discharge in the morning. CXR: Cardiomegaly with pulmonary venous congestion, small left pleural effusion 2D echo: EF 60 to 65% VQ scan: Low probability for PE Lower extremity venous Doppler: No DVT Hospitalist Physical General appearance: Present: no acute distress, well-nourished, obese (Morbidly obese) - EENT Eyes: Present: PERRL, EOM intact - Neck Neck: Present: supple, normal ROM - Respiratory Respiratory effort: normal Respiratory: bilateral: diminished, negative: rales, rhonchi, wheezing - Cardiovascular Rhythm: regular Heart Sounds: Present: S1 & S2 - Extremities Extremities: no ischemia, No edema Extremity abnormal: edema - Abdominal General gastrointestinal: soft, non-tender, non-distended, normal bowel sounds - Integumentary Integumentary: Present: clear, warm - Psychiatric Psychiatric: appropriate mood/affect, cooperative - Neurologic Neurologic: CNII-XII intact, moves all extremities Subjective Date of service: 04/15/20 Principal diagnosis: SOB; HF Interval history: Patient seen and examined. Medical records and medication list reviewed. No acute event overnight noted by the RN. Patient denies any chest pain but complains of difficulty breathing on minimal exertion. Still has significant orthopnea Patient is tolerating diet. Discussed plan of care at bedside with patient. Objective - Constitutional Vitals: Vital Signs - 12hr 04/15/20 04/15/20 04/15/20 05:13 07:31 07:35 Temperature 97.6 F Pulse Rate Respiratory 22 18 Rate Blood Pressure 120/73 85/49 04/15/20 10:00 Temperature Pulse Rate 77 Respiratory Rate Blood Pressure - Labs CBC & Chem 7: 04/12/20 05:16 04/16/20 09:17 Labs: Abnormal lab results 04/15/20 Range/Units 10:51 Chloride 85.3 L (98-107) mmol/L Carbon Dioxide 50 H* D (22-30) mmol/L BUN 29 H (7-17) mg/dL Glucose 107 H (65-100) mg/dL HEART Score - HEART Score Troponin: Troponin T < 0.010 ng/mL (0.00-0.029) 04/12/20 05:16
--- NOTE | 2020-04-15 16:37 | Vascular Lab Report ---
DUPLEX DOPPLER LOWER EXTREMITY VEINS, BILATERAL INDICATION / CLINICAL INFORMATION: Bilateral leg swelling. TECHNIQUE: Duplex doppler imaging was performed through the veins of both lower extremities using venous samantha luis and other maneuvers. COMPARISON: None available. FINDINGS: Right Common Femoral vein: Negative. Right Femoral vein: Negative. Right Popliteal vein: Negative. Right Calf veins: Negative. Left Common Femoral vein: Negative. Left Femoral vein: Negative. Left Popliteal vein: Negative. Left Calf veins: Negative. Additional findings: None. IMPRESSION: 1. No sonographic evidence for DVT in either lower extremity. Signer Name: Connor Reese MD Signed: 04/15/2020 4:33 PM Workstation Name: [id number]
[2020-04-15 20:20] LABS: ABG Base Excess 17.9 mmol/L (-2.0-3.0); ABG HCO3 44.5 mmol/L (20.0-26.0); ABG Methemoglobin 0.4 % (0.0-1.5); ABG Oxygen Saturation 96.9 % (95.0-99.0); ABG PCO2 64.3 mm Hg; ABG PH 7.458 pH Units (7.350-7.450)
[2020-04-16] MEDS: IPRATROPIUM/ALBUTEROL SULFATE 3 ML AMPUL.NEB IH SCH ×3 (01:24→13:07)
[2020-04-16] MEDS: ACETAMINOPHEN 325 MG TAB PO PRN (05:08)
[2020-04-16] MEDS: FUROSEMIDE 40 MG/4 ML INJ IV SCH (05:08)
[2020-04-16 09:59] LABS: BUN/Creatinine Ratio 30; Blood Urea Nitrogen 30 mg/dL (7-17); Calcium 9.7 mg/dL (8.4-10.2); Hemolysis Index 24
--- NOTE | 2020-04-16 10:47 | Progress Note ---
Assessment and Plan V/Q scan low prob for PE. Pt appears to be nearing/at euvolemia. Convert IV lasix to PO lasix 40mg daily. Cont all other present cardiac management. Currently stable cardiac status. Pt may discharge from cardiology standpoint. Follow up in our [place] office with Dr. Brady on 04/25/2020 @ 1:00PM. The patient has been seen in conjunction with Dr. Brady who agrees with the assessment and plan of care. - Patient Problems (1) Acute heart failure with preserved ejection fraction (HFpEF) Current Visit: Yes Status: Acute (2) Acute and chronic respiratory failure Current Visit: Yes Status: Acute (3) COPD (chronic obstructive pulmonary disease) Current Visit: Yes Status: Chronic (4) HTN (hypertension) Current Visit: Yes Status: Chronic (5) History of DVT (deep vein thrombosis) Current Visit: Yes Status: Chronic (6) Sleep apnea Current Visit: Yes Status: Chronic (7) Morbid obesity Current Visit: Yes Status: Chronic (8) HIV (human immunodeficiency virus infection) Current Visit: Yes Status: Chronic (9) Pulmonary hypertension Current Visit: Yes Status: Chronic (10) Moderate tricuspid regurgitation Current Visit: Yes Status: Chronic Subjective Date of service: 04/16/20 Principal diagnosis: SOB; HF Interval history: pt resting in bed, feeling better. in SR on tele HR 80s. Objective Last Vital Signs Temp 98.0 F 04/16/20 07:21 Pulse 75 04/16/20 08:50 Resp 18 04/16/20 08:50 BP 98/42 04/16/20 07:21 Pulse Ox 96 04/16/20 08:47 - Physical Examination General: No Apparent Distress HEENT: Positive: PERRL, Normocephaly, Mucus Membranes Moist Neck: Positive: neck supple, trachea midline Cardiac: Positive: Reg Rate and Rhythm, S1/S2 Lungs: Positive: Decreased Breath Sounds Neuro: Positive: Grossly Intact Abdomen: Negative: Tender Skin: Negative: Rash Musculoskeletal: No Pain Extremities: Absent: edema - Labs and Meds Comprehensive Metabolic Panel 04/15/20 04/16/20 Range/Units 10:51 09:17 Sodium 143 142 (137-145) mmol/L Potassium 4.7 4.5 (3.6-5.0) mmol/L Chloride 85.3 L 85.7 L (98-107) mmol/L Carbon Dioxide 50 H* D 48 H* (22-30) mmol/L BUN 29 H 30 H (7-17) mg/dL Creatinine 1.0 1.0 (0.7-1.2) mg/dL Glucose 107 H 135 H (65-100) mg/dL Calcium 9.7 9.7 (8.4-10.2) mg/dL - Imaging and Cardiology EKG: report reviewed, image reviewed Echo: report reviewed ( EF 60-65%, impaired relaxation, mild LVH, RV mildy dilated, mod pulm HTN with RVSP 68mmHg, mod TR, mild to mod MR. ) - Telemetry EKG Rhythm: Sinus Rhythm
[2020-04-16] MEDS: RIVAROXABAN 10 MG TAB PO SCH (11:12)
[2020-04-16] MEDS: SULFAMETHOXAZOLE/TRIMETHOPRIM 800/160MG DS TAB PO SCH (11:12)
[2020-04-16] MEDS: ASPIRIN 81 MG TAB CHEW PO SCH (11:13)
[2020-04-16] MEDS: carvediloL 12.5 MG TAB PO SCH (11:15)
--- NOTE | 2020-04-16 12:26 | Discharge Summary ---
Providers - Providers Date of Admission: 04/11/20 22:01 Date of discharge: 04/16/20 Attending physician: MARY SHERWOOD 04/11/20 22:01 Consult to Physician [CONS] Routine Comment: Consulting Provider: SHABNAM BRADY Physician Instructions: Reason For Exam: chf 04/15/20 11:10 Physical Therapy Evaluation and Treat [CONS] Routine Comment: Reason For Exam: morbid obesity, deconditioning Primary care physician: FORENSIC PATHOLOGIST Hospitalization Condition: Stable Hospital course: 45-year-old morbidly obese female patient with chronic diastolic CHF, HIV, DVT on Xarelto, COPD on home O2 was admitted through emergency room with worsening shortness of breath orthopnea, paroxysmal nocturnal dyspnea. Patient was admitted for CHF exacerbation, managed appropriately with IV diuresis, evaluated by cardiology, medications optimized, echo revealed moderate pulmonary hypertension. In the setting of positive history of DVT she was further evaluated with pulmonary VQ scan and lower extremity venous Doppler study for possible chronic venous embolism. VQ scan showed no PE, lower extremity Doppler is negative for DVT. Cardiology recommended to continue diuresis. Consulted physical therapy and recommended home health. Patient already has home oxygen, she was then discharged home in stable condition with outpatient follow-up. Radiological data: CXR: Cardiomegaly with pulmonary venous congestion, small left pleural effusion 2D echo: EF 60 to 65% VQ scan: Low probability for PE Lower extremity venous Doppler: No DVT Discharge diagnosis and management: /Acute on chronic respiratory failure, POA - due to underlying COPD and CHF - patient on 2 l home O2 /Acute on chronic diastolic CHF [preserved EF] s/p IV Lasix, continue aspirin Monitored I's and O's, daily weights Cardiology evaluation noted and appreciated Chest x-ray; mild cardiomegaly, mild interstitial edema Small left pleural effusion Echo; EF 60 to 65%, Mild concentric LVH Moderate pulmonary hypertension /HIV, stable resumed antiretrovirals /History of DVT, resumed Xarelto Patient has pulmonary hypertension /COPD with home O2 placed on nebs, supplemental O2 / Moderate pulmonary hypertension - outpt f/u with pulmonary /Morbid obesity; BMI 66.2 Patient would benefit by bariatric surgical consultation For weight reduction program upon discharge when stable /Obstructive sleep apnea; CPAP at night --DVT prophylax; on Xarelto Disposition: Home with home health Hospitalist Physical General appearance: Present: no acute distress, well-nourished, obese (Morbidly obese) - EENT Eyes: Present: PERRL, EOM intact - Neck Neck: Present: supple, normal ROM - Respiratory Respiratory effort: normal Respiratory: bilateral: diminished, negative: rales, rhonchi, wheezing - Cardiovascular Rhythm: regular Heart Sounds: Present: S1 & S2 - Extremities Extremities: no ischemia, No edema Extremity abnormal: edema - Abdominal General gastrointestinal: soft, non-tender, non-distended, normal bowel sounds - Integumentary Integumentary: Present: clear, warm - Psychiatric Psychiatric: appropriate mood/affect, cooperative - Neurologic Neurologic: CNII-XII intact, moves all extremities Disposition: -01 TO HOME OR SELFCARE Time spent for discharge: 34 minutes Core Measure Documentation - Palliative Care Palliative Care/ Comfort Measures: Not Applicable - Core Measures Any of the following diagnoses?: heart failure - Heart Failure Discharge Requirements DAVID/ARB for LVSD if EF <40%: Not Applicable Beta trudi at discharge: Yes Exam - Constitutional Vitals: Temp Pulse Resp BP Pulse Ox 98.2 F 84 20 125/65 92 04/16/20 11:47 04/16/20 11:48 04/16/20 11:47 04/16/20 11:47 04/16/20 11:48 Plan Activity: advance as tolerated Weight Bearing Status: Weight Bear as Tolerated Diet: low fat, low salt, other (Weight reduction diet) Special Instructions: restrict fluid intake to (1.2L per day) Follow up with: FARZANEH COMER MD [Primary Care Provider] - 3-5 Days SHABNAM BRADY MD [Staff Physician] - 7 Days (Follow up in our [place] office with Dr. Brady on 04/25/2020 @ 1:00PM. ) Prescriptions: Aspirin [Aspirin BABY CHEW TAB] 81 mg PO DAILY #30 tab.chew Furosemide [Lasix TAB] 40 mg PO QDAY #30 tablet
[2020-04-16 16:48] VITALS: BP 93/44
[2020-04-17] MEDS ORDERED: FUROSEMIDE 40 MG TAB PO SCH (10:00)
== END 2020-04-16 18:58 | disposition home or self-care (01) | DRG 291 ==
LOC: ED 19:19 → 4A 22:01
PROVIDERS: ADMIT Internal Medicine; ATTEND Internal Medicine
PROC: 4A033R1 Measurement of Arterial Saturation, Peripheral, Percutaneous Approach (ICD-10-PCS; principal; 2020-04-15)
DX: I50.33 Acute on chronic diastolic (congestive) heart failure (principal); J96.00 Acute respiratory failure, unspecified whether with hypoxia or hypercapnia; E66.01 Morbid (severe) obesity due to excess calories; J44.9 Chronic obstructive pulmonary disease, unspecified; G47.33 Obstructive sleep apnea (adult) (pediatric); I27.20 Pulmonary hypertension, unspecified; I36.1 Nonrheumatic tricuspid (valve) insufficiency; Z68.44 Body mass index [BMI] 60.0-69.9, adult; Z71.3 Dietary counseling and surveillance; Z82.49 Family history of ischemic heart disease and other diseases of the circulatory system; Z86.718 Personal history of other venous thrombosis and embolism; Z99.81 Dependence on supplemental oxygen; Z21 Asymptomatic human immunodeficiency virus [HIV] infection status
CPT/HCPCS: 36415; 36600; 71045; 78580; 80048; 82550; 82553; 82803; 83880; 84484; 85025; 85610; 85730; 93005; 93306; 93970; 94640; 94760; G0378; A9540; J1940

== ENCOUNTER 2020-11-03 18:13 | Inpatient (IN) | payer MEDICAID ==
[2020-11-03] MEDS ORDERED: MAGNESIUM SULFATE 2 GM/50 ML BAG IV ONE (19:14)
[2020-11-03] MEDS ORDERED: FUROSEMIDE 40 MG/4 ML INJ IV ONE (19:14)
[2020-11-03] MEDS ORDERED: cefTRIAXone/NS 1 GM/50 ML 1 GM/50 ML BAG IV ONE (19:20)
[2020-11-03] MEDS ORDERED: AZITHROMYCIN 500 MG in SODIUM CHLORIDE 0.9% 250ML 250 ML IV ONE (19:20)
[2020-11-03] MEDS ORDERED: methylPREDNISolone Sod Succinate 125 MG/2 ML INJ IV ONE (19:22)
--- NOTE | 2020-11-03 20:02 | XRay Report ---
XR chest 1V ap INDICATION / CLINICAL INFORMATION: Dyspnea. COMPARISON: 07/25/2020. FINDINGS: SUPPORT DEVICES: None. HEART /PULMONARY VASCULATURE: Cardiac enlargement with pulmonary vasculature congestion. LUNGS / PLEURA: No significant pulmonary or pleural abnormality. No pneumothorax. ADDITIONAL FINDINGS: No significant additional findings. IMPRESSION: Findings most compatible with CHF/volume overload. Signer Name: Donte Messina MD Signed: 11/03/2020 7:57 PM Workstation Name: [id number]
[2020-11-03 20:54] LABS: Mean Corpuscular HGB Conc 29 % (30-34); Mean Corpuscular Volume 84 fl (79-97); Platelet Count 222 K/mm3 (140-440); Red Blood Count 5.12 M/mm3 (3.65-5.03); Red Cell Distribution Width 16.4 % (13.2-15.2)
[2020-11-03 20:57] LABS: Hematocrit 43.1 % (30.3-42.9); Hemoglobin 12.3 gm/dl (10.1-14.3)
[2020-11-03 21:23] LABS: BUN/Creatinine Ratio 35; Blood Urea Nitrogen 28 mg/dL (7-17); Calcium 9.6 mg/dL (8.4-10.2); Hemolysis Index 139
[2020-11-03] MEDS ORDERED: methylPREDNISolone Sod Succinate 125 MG/2 ML INJ ONE (21:36)
[2020-11-03] MEDS ORDERED: FUROSEMIDE 40 MG/4 ML INJ ONE (21:37)
[2020-11-03 22:19] LABS: Anisocytosis Few; Band Neutrophils # (Manual) 0.3 K/mm3; Hypochromasia 1+; Total Cells Counted 100
[2020-11-03 22:20] LABS: Platelet Estimate Consistent w Auto
[2020-11-03] MEDS ORDERED: ACETAMINOPHEN 325 MG TAB PO PRN (22:21)
[2020-11-03] MEDS ORDERED: ONDANSETRON 4 MG/2 ML INJ IV PRN (22:21)
[2020-11-03] MEDS ORDERED: MORPHINE 2 MG/1 ML INJ IV PRN (22:51)
[2020-11-03] MEDS ORDERED: MAGNESIUM HYDROXIDE (MOM) ORAL LIQD UDC PO PRN (22:51)
--- NOTE | 2020-11-03 23:09 | History and Physical Report ---
History of Present Illness Date of examination: 11/03/20 Date of admission: 11/03/20 22:21 Chief complaint: Shortness of Breath History of present illness: 45-year-old female with known history of CHF, COPD, hypertension, HIV, sleep apnea, pulmonary hypertension and paroxysmal atrial fibrillation presenting to the emergency room today with a 1 week history of shortness of breath. She has had some mild cough which is nonproductive. She denies any chest pain, no fever or chills, denies any sick contacts and no contact with anyone with COVID-19. Patient denies any headache or dizziness, no nausea or vomiting, no abdominal pain, no hematuria or dysuria. Upon arrival of EMS oxygen saturation was said to be in the 70s and she was subsequently placed on CPAP with minimal improvement of oxygen saturation to about 81%. Work-up in the emergency room today chest x-ray compatible with volume overload. Patient being admitted for CHF exacerbation, respiratory failure. Past History Past Medical History: COPD, DVT, heart failure, other (H/O Lymphoma,HIV) Past Surgical History: Other (Tumor removal from chest in 2013) Social history: smoking (Former smoker) Family history: no significant family history Medications and Allergies Allergies Allergy/AdvReac Type Severity Reaction Status Date / Time No Known Allergies Allergy Verified 11/03/20 18:34 Home Medications Medication Instructions Recorded Confirmed Last Taken Type Dolutegravir [Tivicay] 50 mg PO DAILY 04/12/20 07/17/20 07/16/20 History Emtricitabine/Tenofov Alafenam 200 mg PO DAILY 04/12/20 07/17/20 04/11/20 08:00 History [Descovy 200-25 mg Tablet] Sulfamethoxazole/Trimethoprim 1 each PO DAILY 04/12/20 07/17/20 04/11/20 08:00 History [Bactrim DS TAB] Aspirin [Aspirin BABY CHEW TAB] 81 mg PO DAILY #30 tab.chew 04/16/20 07/17/20 07/17/20 14:03 Rx Furosemide [Lasix TAB] 40 mg PO QDAY #30 tablet 04/16/20 07/17/20 07/17/20 Rx Albuterol Mdi (or & Nicu Only) 2 puff IH QID PRN #8.5 gram 05/29/20 07/17/20 07/17/20 14:03 Rx [ProAir HFA Inhaler] guaiFENesin DM [Guaifenesin Dm 10 ml PO Q4H PRN 10 Days #1 bottle 05/29/20 07/17/20 07/16/20 Rx Syrup] Ferrous Sulfate [Feosol 325 MG tab] 325 mg PO BID #60 tablet 07/29/20 Unknown Rx Metoprolol [Lopressor TAB] 12.5 mg PO BID #60 tablet 07/29/20 Unknown Rx Rivaroxaban [Xarelto] 20 mg PO QDAY #30 tablet 07/29/20 Unknown Rx guaiFENesin [Robitussin] 200 mg PO Q4H PRN 30 Days #1 bottle 07/29/20 Unknown Rx predniSONE 4 tab PO DAILY #21 tablet 07/29/20 Unknown Rx Active Meds: Active Medications Acetaminophen (Acetaminophen 325 Mg Tab) 650 mg PO Q4H PRN PRN Reason: Pain MILD(1-3)/Fever >100.5/LEES Albuterol/Ipratropium (Ipratropium/Albuterol Sulfate 3 Ml Ampul.Neb) 1 ampul IH Q6HRT [facility] Furosemide (Furosemide 40 Mg/4 Ml Inj) 40 mg IV BID@0600,1800 [facility] Heparin Sodium (Porcine) (Heparin 5,000 Unit/1 Ml Vial) 5,000 unit SUB-Q Q8HR [facility] Magnesium Hydroxide (Magnesium Hydroxide (Mom) Oral Liqd Udc) 30 ml PO Q4H PRN PRN Reason: Constipation Methylprednisolone Sodium Succinate (Methylprednisolone Sod Succinate 40 Mg/1 Ml Inj) 40 mg IV Q8HR [facility] Morphine Sulfate (Morphine 2 Mg/1 Ml Inj) 2 mg IV Q4H PRN PRN Reason: Pain, Moderate (4-6) Ondansetron HCl (Ondansetron 4 Mg/2 Ml Inj) 4 mg IV Q8H PRN PRN Reason: Nausea And Vomiting Sodium Chloride (Sodium Chloride 0.9% 10 Ml Flush Syringe) 10 ml IV BID [facility] Sodium Chloride (Sodium Chloride 0.9% 10 Ml Flush Syringe) 10 ml IV PRN PRN PRN Reason: LINE FLUSH Sodium Chloride (Sodium Chloride 0.9% 10 Ml Flush Syringe) 10 ml IV BID [facility] Sodium Chloride (Sodium Chloride 0.9% 10 Ml Flush Syringe) 10 ml IV PRN PRN PRN Reason: LINE FLUSH Review of Systems Constitutional: no fever Ears, nose, mouth and throat: no nasal congestion, no sore throat Cardiovascular: no chest pain, no palpitations Respiratory: cough, shortness of breath, wheezing Gastrointestinal: no abdominal pain, no nausea, no vomiting, no diarrhea Genitourinary Female: no flank pain, no dysuria, no hematuria Musculoskeletal: no neck pain, no low back pain Integumentary: no rash, no pruritis Neurological: no headaches, no confusion Psychiatric: no anxiety, no depression Exam - Constitutional Vitals: Temp Pulse Resp BP Pulse Ox 108 H 25 H 134/96 98 11/03/20 22:00 11/03/20 22:00 11/03/20 22:30 11/03/20 22:30 General appearance: Present: mild distress, well-nourished, obese - EENT Eyes: Present: PERRL, EOM intact. Absent: scleral icterus ENT: hearing intact, clear oral mucosa, dentition normal - Neck Neck: Present: supple, normal ROM - Respiratory Respiratory effort: labored Respiratory: bilateral: rales - Cardiovascular Rhythm: regular Heart Sounds: Present: S1 & S2. Absent: gallop, systolic murmur, diastolic mur mur, rub - Extremities Extremities: no ischemia, pulses intact, pulses symmetrical, Full ROM Extremity abnormal: edema (2+ bilateral lower extremity edema) Peripheral Pulses: within normal limits - Abdominal General gastrointestinal: Present: soft, non-tender, non-distended, normal bowel sounds. Absent: mass - Integumentary Integumentary: Present: clear, warm, dry. Absent: rash - Musculoskeletal Musculoskeletal: strength equal bilaterally - Psychiatric Psychiatric: appropriate mood/affect, intact judgment & insight, memory intact, cooperative - Neurologic Neurologic: CNII-XII intact, no focal deficits, moves all extremities Results - Labs CBC & Chem 7: 11/03/20 19:51 11/04/20 04:44 Labs: Abnormal lab results 11/03/20 11/03/20 11/03/20 Range/Units 19:51 19:51 19:51 RBC 5.12 H (3.65-5.03) M/mm3 Hct 43.1 H (30.3-42.9) % MCH 24 L (28-32) pg MCHC 29 L (30-34) % RDW 16.4 H (13.2-15.2) % Seg Neuts % (Manual) 79.0 H (40.0-70.0) % Lymphocytes % (Manual) 7.0 L (13.4-35.0) % Monocytes % (Manual) 11.0 H (0.0-7.3) % Nucleated RBC % 3.0 H (0.0-0.9) % Lymphocytes # (Manual) 0.6 L (1.2-5.4) K/mm3 Monocytes # (Manual) 1.0 H (0.0-0.8) K/mm3 Sodium 135 L (137-145) mmol/L Potassium 5.5 H (3.6-5.0) mmol/L Chloride 90.5 L (98-107) mmol/L Carbon Dioxide 38 H (22-30) mmol/L BUN 28 H (7-17) mg/dL NT-Pro-B Natriuret Pep 982.4 H (0-450) pg/mL 11/03/20 Range/Units 22:25 RBC (3.65-5.03) M/mm3 Hct (30.3-42.9) % MCH (28-32) pg MCHC (30-34) % RDW (13.2-15.2) % Seg Neuts % (Manual) (40.0-70.0) % Lymphocytes % (Manual) (13.4-35.0) % Monocytes % (Manual) (0.0-7.3) % Nucleated RBC % (0.0-0.9) % Lymphocytes # (Manual) (1.2-5.4) K/mm3 Monocytes # (Manual) (0.0-0.8) K/mm3 Sodium (137-145) mmol/L Potassium 5.1 H (3.6-5.0) mmol/L Chloride (98-107) mmol/L Carbon Dioxide (22-30) mmol/L BUN (7-17) mg/dL NT-Pro-B Natriuret Pep (0-450) pg/mL Assessment and Plan - Patient Problems (1) Acute and chronic respiratory failure Current Visit: Yes Status: Acute Qualifiers: Respiratory failure complication: hypoxia Qualified Code(s): J96.21 - Acute and chronic respiratory failure with hypoxia Plan to address problem: Possibly secondary to the CHF with underlying history of COPD. Patient currently on BiPAP. We will consult pulmonology for evaluation. (2) Acute exacerbation of CHF (congestive heart failure) Current Visit: Yes Status: Acute Qualifiers: Heart failure type: unspecified Qualified Code(s): I50.9 - Heart failure, unspecified Plan to address problem: Patient placed on diuretics. Will monitor inputs and outputs and also monitor daily weight. Patient will be scheduled for echocardiogram. (3) COPD with exacerbation Current Visit: Yes Status: Acute Plan to address problem: Patient will be placed on nebulizing treatments as needed. (4) HIV (human immunodeficiency virus infection) Current Visit: No Status: Chronic Qualifiers: HIV symptom status: asymptomatic Qualified Code(s): Z21 - Asymptomatic human immunodeficiency virus [HIV] infection status Plan to address problem: We will resume routine medications once reconciled. (5) HTN (hypertension) Current Visit: No Status: Chronic Qualifiers: Hypertension type: essential hypertension Qualified Code(s): I10 - Es sential (primary) hypertension Plan to address problem: Resume routine home medications and monitor vital signs closely. (6) Morbid obesity Current Visit: No Status: Chronic Plan to address problem: We will place dietary consult for evaluation. (7) Hyperkalemia Current Visit: No Status: Acute Plan to address problem: We did give insulin, glucose and calcium gluconate. Will monitor potassium levels. (8) DVT prophylaxis Current Visit: Yes Status: Acute Plan to address problem: Patient placed on subcutaneous heparin. (9) Full code status Current Visit: No Status: Acute
--- NOTE | 2020-11-03 23:18 | Emergency Department Report ---
ED Shortness of Breath HPI - General Chief Complaint: Dyspnea/Respdistress Stated Complaint: SANDRA Time Seen by Provider: 11/03/20 19:02 Source: patient, EMS Mode of arrival: Stretcher Limitations: No Limitations - History of Present Illness Initial Comments: Chief complaint: Shortness of breath HPI: This is a 45-year-old female with history of CHF, COPD, hypertension, DVT, severe obesity, sleep apnea, HIV, anemia, pulmonary hypertension, tricuspid reg urgitation, paroxysmal atrial fibrillation who presents with shortness of breath for 1 week. She has had productive cough. She denies fever. Denies chest pain. No sick contacts. Upon EMS arrival oxygen saturation in the 70s. She required CPAP for transport with persistent hypoxia 81% in spite CPAP. Patient denies headache, body aches, chest pain, abdominal pain. MD Complaint: shortness of breath, cough -: Gradual, week(s) (1) Severity: severe Consistency: constant Improves With: oxygen, other (CPAP BiPAP) Worsens With: exertion, other (Laying flat) Known History Of: COPD, congestive heart failure Context: other (History of CHF, history of COPD) Associated Symptoms: cough, sputum production - Related Data Home Medications Medication Instructions Recorded Confirmed Last Taken Dolutegravir [Tivicay] 50 mg PO DAILY 04/12/20 07/17/20 07/16/20 Emtricitabine/Tenofov Alafenam 200 mg PO DAILY 04/12/20 07/17/20 04/11/20 08:00 [Descovy 200-25 mg Tablet] Sulfamethoxazole/Trimethoprim 1 each PO DAILY 04/12/20 07/17/20 04/11/20 08:00 [Bactrim DS TAB] Previous Rx's Medication Instructions Recorded Last Taken Type Aspirin [Aspirin BABY CHEW TAB] 81 mg PO DAILY #30 tab.chew 04/16/20 07/17/20 14:03 Rx Furosemide [Lasix TAB] 40 mg PO QDAY #30 tablet 04/16/20 07/17/20 Rx Albuterol Mdi (or & Nicu Only) 2 puff IH QID PRN #8.5 gram 05/29/20 07/17/20 14:03 Rx [ProAir HFA Inhaler] guaiFENesin DM [Guaifenesin Dm 10 ml PO Q4H PRN 10 Days #1 bottle 05/29/20 07/16/20 Rx Syrup] Ferrous Sulfate [Feosol 325 MG tab] 325 mg PO BID #60 tablet 07/29/20 Unknown Rx Metoprolol [Lopressor TAB] 12.5 mg PO BID #60 tablet 07/29/20 Unknown Rx Rivaroxaban [Xarelto] 20 mg PO QDAY #30 tablet 07/29/20 Unknown Rx guaiFENesin [Robitussin] 200 mg PO Q4H PRN 30 Days #1 bottle 07/29/20 Unknown Rx predniSONE 4 tab PO DAILY #21 tablet 07/29/20 Unknown Rx Allergies Allergy/AdvReac Type Severity Reaction Status Date / Time No Known Allergies Allergy Verified 11/03/20 18:34 ED Review of Systems ROS: Stated complaint: SANDRA Other details as noted in HPI Comment: All other systems reviewed and negative Constitutional: denies: chills, fever, malaise Respiratory: cough, shortness of breath, wheezing Cardiovascular: denies: chest pain Gastrointestinal: denies: abdominal pain, nausea, vomiting ED Past Medical Hx - Past Medical History Previous Medical History?: Yes Hx Hypertension: Yes Hx Heart Attack/AMI: No Hx Congestive Heart Failure: Yes Hx Diabetes: No Hx Deep Vein Thrombosis: Yes Hx Pulmonary Embolism: No Hx Asthma: Yes Hx COPD: Yes Hx Tuberculosis: No Hx HIV: Yes Additional medical history: Lymphoma, DVT - Surgical History Past Surgical History?: Yes Hx Coronary Stent: No Hx Pacemaker: No Hx Internal Defibrillator: No Additional Surgical History: tumor removal in the chest 2013 - Social History Smoking Status: Never Smoker Substance Use Type: None - Medications Home Medications: Home Medications Medication Instructions Recorded Confirmed Last Taken Type Dolutegravir [Tivicay] 50 mg PO DAILY 04/12/20 07/17/20 07/16/20 History Emtricitabine/Tenofov Alafenam 200 mg PO DAILY 04/12/20 07/17/20 04/11/20 08:00 History [Descovy 200-25 mg Tablet] Sulfamethoxazole/Trimethoprim 1 each PO DAILY 04/12/20 07/17/20 04/11/20 08:00 History [Bactrim DS TAB] Aspirin [Aspirin BABY CHEW TAB] 81 mg PO DAILY #30 tab.chew 04/16/20 07/17/20 07/17/20 14:03 Rx Furosemide [Lasix TAB] 40 mg PO QDAY #30 tablet 04/16/20 07/17/20 07/17/20 Rx Albuterol Mdi (or & Nicu Only) 2 puff IH QID PRN #8.5 gram 05/29/20 07/17/20 07/17/20 14:03 Rx [ProAir HFA Inhaler] guaiFENesin DM [Guaifenesin Dm 10 ml PO Q4H PRN 10 Days #1 bottle 05/29/20 07/17/20 07/16/20 Rx Syrup] Ferrous Sulfate [Feosol 325 MG tab] 325 mg PO BID #60 tablet 07/29/20 Unknown Rx Metoprolol [Lopressor TAB] 12.5 mg PO BID #60 tablet 07/29/20 Unknown Rx Rivaroxaban [Xarelto] 20 mg PO QDAY #30 tablet 07/29/20 Unknown Rx guaiFENesin [Robitussin] 200 mg PO Q4H PRN 30 Days #1 bottle 07/29/20 Unknown Rx predniSONE 4 tab PO DAILY #21 tablet 07/29/20 Unknown Rx ED Physical Exam - General Limitations: No Limitations General appearance: alert, anxious, in distress, other (Obvious work of breathing, speaking to2 word sentences,) - Head Head exam: Present: atraumatic, normocephalic - Eye Eye exam: Present: normal appearance - ENT ENT exam: Present: mucous membranes moist - Neck Neck exam: Present: normal inspection - Respiratory Respiratory exam: Present: respiratory distress, rales, accessory muscle use, decreased breath sounds. Absent: wheezes, rhonchi - Cardiovascular Cardiovascular Exam: Present: normal rhythm, tachycardia, normal heart sounds. Absent: rubs, gallop - GI/Abdominal GI/Abdominal exam: Present: soft, normal bowel sounds. Absent: distended, guarding, rebound - Extremities Exam Extremities exam: Present: normal inspection - Back Exam Back exam: Present: normal inspection - Neurological Exam Neurological exam: Present: alert, oriented X3 - Psychiatric Psychiatric exam: Present: normal affect, anxious - Skin Skin exam: Present: warm, dry, intact, normal color. Absent: rash ED Course Vital Signs 11/03/20 11/03/20 11/03/20 18:39 19:16 19:30 Pulse Rate 113 H 108 H 108 H Respiratory 32 H 26 H 25 H Rate Blood Pressure 144/96 Blood Pressure 144/96 [Right] O2 Sat by Pulse 85 94 100 Oximetry 11/03/20 11/03/20 11/03/20 19:46 20:00 20:16 Pulse Rate 114 H 108 H 107 H Respiratory 17 42 H 33 H Rate Blood Pressure 144/96 144/96 144/96 Blood Pressure [Right] O2 Sat by Pulse 94 100 100 Oximetry 11/03/20 11/03/20 11/03/20 20:30 20:46 21:00 Pulse Rate 108 H 105 H 110 H Respiratory 31 H 36 H 34 H Rate Blood Pressure 144/96 144/96 144/96 Blood Pressure [Right] O2 Sat by Pulse Oximetry 11/03/20 11/03/20 11/03/20 21:16 21:30 21:46 Pulse Rate 104 H 104 H 115 H Respiratory 18 38 H 13 Rate Blood Pressure 144/96 144/96 144/96 Blood Pressure [Right] O2 Sat by Pulse 100 100 95 Oximetry 11/03/20 11/03/20 11/03/20 22:00 22:16 22:30 Pulse Rate 108 H Respiratory 25 H Rate Blood Pressure 139/89 139/89 134/96 Blood Pressure [Right] O2 Sat by Pulse 98 Oximetry ED Medical Decision Making - Lab Data Result diagrams: 11/03/20 19:51 11/03/20 22:25 - EKG Data EKG shows normal: sinus rhythm, intervals, QRS complexes, ST-T waves Rate: tachycardia - EKG Data 11/03/20 23:19 EKG obtained 2249 EKG interpreted by md Sinus tachycardia rate 100 bpm rightward axis deviation no ST elevation nonischemic T wave pattern enlarged P waves - Medical Decision Making 1. Acute respiratory failure hypoxia requiring noninvasive positive pressure ventilation. Pulmonary edema is present however does not appear to severe hypoxia. COPD is likely also contributing factor. Patient received IV diuretic, also received IV steroids and IV antibiotics. Patient admitted in fair condition to telemetry. Patient on reexamination is comfortable. She is speaking for sentences. Oxygen saturation 99% FiO2 45%. Critical Care Time: Yes Critical care time in (mins) excluding proc time.: 40 Critical care attestation.: If time is entered above; I have spent that time in minutes in the direct care of this critically ill patient, excluding procedure time. 40 minutes of critical care time excluding procedures were used in the care of the patient. I came immediately to the bedside upon patient's arrival. I disc ussed treatment plan with the nursing team members and respiratory therapist. I reviewed electronic record. I was concerned for airway compromise respiratory failure with profound hypoxia. Patient required noninvasive positive pressure ventilation immediately upon arrival. Patient required multiple interventions and reassessments. ED Disposition Clinical Impression: COPD with exacerbation Acute exacerbation of CHF (congestive heart failure) Qualifiers: Heart failure type: unspecified Qualified Code(s): I50.9 - Heart failure, unspecified Acute and chronic respiratory failure Qualifiers: Respiratory failure complication: hypoxia Qualified Code(s): J96.21 - Acute and chronic respiratory failure with hypoxia Disposition: OP ADMIT IP TO THIS HOSP Is pt being admited?: Yes Does the pt Need Aspirin: No Condition: Fair
[2020-11-04 00:55] LABS: ABG Base Excess 19.7 mmol/L (-2.0-3.0); ABG HCO3 51.5 mmol/L (20.0-26.0); ABG Methemoglobin 0.6 % (0.0-1.5); ABG Oxygen Saturation 90.9 % (95.0-99.0); ABG PH 7.265 pH Units (7.350-7.450); ABG PO2 65.7 mm Hg (80.0-90.0)
[2020-11-04] MEDS: IPRATROPIUM/ALBUTEROL SULFATE 3 ML AMPUL.NEB IH SCH ×4 (03:18→23:58)
[2020-11-04] MEDS: FUROSEMIDE 40 MG/4 ML INJ IV SCH ×2 (05:55→18:57)
[2020-11-04] MEDS: methylPREDNISolone Sod Succinate 40 MG/1 ML INJ IV SCH ×3 (05:55→21:47)
[2020-11-04] MEDS ORDERED: HEPARIN 5,000 UNIT/1 ML VIAL SUB-Q SCH (06:00)
[2020-11-04 06:02] LABS: INR 1.04 (0.87-1.13)
[2020-11-04 06:08] LABS: BUN/Creatinine Ratio 33; Blood Urea Nitrogen 26 mg/dL (7-17); Calcium 9.8 mg/dL (8.4-10.2); Hemolysis Index 16
[2020-11-04] MEDS ORDERED: SODIUM POLYSTYRENE 15 GM/60 ML ORAL LIQD PO ONE ×2 (07:00→09:10)
[2020-11-04] MEDS ORDERED: INSULIN REGULAR, HUMAN 100 UNIT/ML 3ML VIAL SUB-Q ONE (08:00)
[2020-11-04] MEDS ORDERED: CALCIUM GLUCONATE 1,000 MG in SODIUM CHLORIDE 0.9% 100 ML IV ONE (08:00)
[2020-11-04] MEDS ORDERED: DEXTROSE 50% IN WATER (25GM) 50 ML SYRINGE IV ONE (08:00)
[2020-11-04 08:28] LABS: ABG Base Excess 19.8 mmol/L (-2.0-3.0); ABG HCO3 50.6 mmol/L (20.0-26.0); ABG Methemoglobin 0.5 % (0.0-1.5); ABG Oxygen Saturation 96.5 % (95.0-99.0); ABG PH 7.305 pH Units (7.350-7.450); ABG PO2 84.3 mm Hg (80.0-90.0)
[2020-11-04] MEDS ORDERED: SODIUM BICARB 8.4% 50 MEQ/50 ML SYRINGE IV ONE (09:39)
--- NOTE | 2020-11-04 10:02 | Consultation ---
History of Present Illness Consult date: 11/04/20 Requesting physician: ANA MANCUSO Consult reason: congestive heart failure History of present illness: The pt is a 45YO female with a past medical history of HFpEF, paroxysmal atrial fibrillation, anticoagulated with Xarelto, HTN, COPD, chronic respiratory failure requiring home O2, DVT, anticoagulated with Xarelto, BRIAN noncompliant with CPAP, HIV, pulmonary HTN, mod TR, morbid obesity. She has been seen by our practice on multiple prior hospitalizations and in our office by Dr. Courtney Bruno, although she is inconsistent with OP follow up. She presented with c/o progressively worsening SOB for approx 1 week prior to arrival. Upon EMS arrival oxygen saturation in the 70s. She required CPAP for transport with persistent hypoxia 81% in spite CPAP. On evaluation, she is on BiPAP. tte done 03/2020 showed EF 60-65%, impaired relaxation, mild LVH, RV mildy dilated, mod pulm HTN with RVSP 68mmHg, mod TR, mild to mod MR. Past History Past Medical History: COPD, DVT, heart failure, other (as per HPI) Past Surgical History: Other (Tumor removal from chest in 2013) Social history: smoking (Former smoker) Family history: no significant family history Medications and Allergies Allergies Allergy/AdvReac Type Severity Reaction Status Date / Time No Known Allergies Allergy Verified 11/03/20 18:34 Home Medications Medication Instructions Recorded Confirmed Last Taken Type Dolutegravir [Tivicay] 50 mg PO DAILY 04/12/20 07/17/20 07/16/20 History Emtricitabine/Tenofov Alafenam 200 mg PO DAILY 04/12/20 07/17/20 04/11/20 08:00 History [Descovy 200-25 mg Tablet] Sulfamethoxazole/Trimethoprim 1 each PO DAILY 04/12/20 07/17/20 04/11/20 08:00 History [Bactrim DS TAB] Aspirin [Aspirin BABY CHEW TAB] 81 mg PO DAILY #30 tab.chew 04/16/20 07/17/20 07/17/20 14:03 Rx Furosemide [Lasix TAB] 40 mg PO QDAY #30 tablet 04/16/20 07/17/20 07/17/20 Rx Albuterol Mdi (or & Nicu Only) 2 puff IH QID PRN #8.5 gram 05/29/20 07/17/20 07/17/20 14:03 Rx [ProAir HFA Inhaler] guaiFENesin DM [Guaifenesin Dm 10 ml PO Q4H PRN 10 Days #1 bottle 05/29/20 07/17/20 07/16/20 Rx Syrup] Ferrous Sulfate [Feosol 325 MG tab] 325 mg PO BID #60 tablet 07/29/20 Unknown Rx Metoprolol [Lopressor TAB] 12.5 mg PO BID #60 tablet 07/29/20 Unknown Rx Rivaroxaban [Xarelto] 20 mg PO QDAY #30 tablet 07/29/20 Unknown Rx guaiFENesin [Robitussin] 200 mg PO Q4H PRN 30 Days #1 bottle 07/29/20 Unknown Rx predniSONE 4 tab PO DAILY #21 tablet 07/29/20 Unknown Rx Active Meds: Active Medications Acetaminophen (Acetaminophen 325 Mg Tab) 650 mg PO Q4H PRN PRN Reason: Pain MILD(1-3)/Fever >100.5/LEES Albuterol/Ipratropium (Ipratropium/Albuterol Sulfate 3 Ml Ampul.Neb) 1 ampul IH Q6HRT [facility] Last Admin: 11/04/20 09:51 Dose: 1 ampul Documented by: Furosemide (Furosemide 40 Mg/4 Ml Inj) 40 mg IV BID@0600,1800 [facility] Last Admin: 11/04/20 05:55 Dose: 40 mg Documented by: Heparin Sodium (Porcine) (Heparin 5,000 Unit/1 Ml Vial) 5,000 unit SUB-Q Q8HR [facility] Last Admin: 11/04/20 05:56 Dose: 5,000 unit Documented by: Magnesium Hydroxide (Magnesium Hydroxide (Mom) Oral Liqd Udc) 30 ml PO Q4H PRN PRN Reason: Constipation Methylprednisolone Sodium Succinate (Methylprednisolone Sod Succinate 40 Mg/1 Ml Inj) 40 mg IV Q8HR [facility] Last Admin: 11/04/20 05:55 Dose: 40 mg Documented by: Morphine Sulfate (Morphine 2 Mg/1 Ml Inj) 2 mg IV Q4H PRN PRN Reason: Pain, Moderate (4-6) Ondansetron HCl (Ondansetron 4 Mg/2 Ml Inj) 4 mg IV Q8H PRN PRN Reason: Nausea And Vomiting Sodium Chloride (Sodium Chloride 0.9% 10 Ml Flush Syringe) 10 ml IV BID [place] Sodium Chloride (Sodium Chloride 0.9% 10 Ml Flush Syringe) 10 ml IV PRN PRN PRN Reason: LINE FLUSH Review of Systems Constitutional: no fever, no chills, no sweats Ears, nose, mouth and throat: no ear pain, no nose pain, no sinus pressure, no sinus pain Cardiovascular: shortness of breath, dyspnea on exertion, no chest pain Respiratory: shortness of breath, dyspnea on exertion Gastrointestinal: no abdominal pain, no nausea, no vomiting, no diarrhea, no constipation, no change in bowel habits Genitourinary Female: no pelvic pain, no flank pain, no dysuria, no urinary frequency, no urgency Musculoskeletal: no neck stiffness, no neck pain, no shooting arm pain, no arm numbness/tingling, no low back pain, no shooting leg pain Integumentary: no rash, no pruritis, no redness, no sores, no wounds Neurological: no head injury, no paralysis, no weakness, no parathesias, no nu mbness, no tingling, no seizures, no syncope Psychiatric: no anxiety Endocrine: no cold intolerance, no heat intolerance Hematologic/Lymphatic: no easy bruising Allergic/Immunologic: no urticaria Physical Examination Vital Signs Pulse Resp BP Pulse Ox 113 H 32 H 144/96 85 11/03/20 18:39 11/03/20 18:39 11/03/20 18:39 11/03/20 18:39 General appearance: no acute distress HEENT: Positive: PERRL Neck: Positive: neck supple, trachea midline Cardiac: Positive: Reg Rate and Rhythm, S1/S2 Lungs: Positive: Decreased Breath Sounds, Oxygen Neuro: Positive: Grossly Intact Abdomen: Negative: Tender Skin: Negative: Rash Musculoskeletal: No Pain Results 11/03/20 19:51 11/04/20 04:44 Coagulation 11/04/20 Range/Units 04:44 PT 13.5 (12.2-14.9) Sec. INR 1.04 (0.87-1.13) CBC 11/03/20 Range/Units 19:51 WBC 9.2 (4.5-11.0) K/mm3 RBC 5.12 H (3.65-5.03) M/mm3 Hgb 12.3 (10.1-14.3) gm/dl Hct 43.1 H (30.3-42.9) % Plt Count 222 (140-440) K/mm3 Lymph # (Auto) Midwife Todd # (Auto) Midwife Eos # (Auto) Midwife Baso # (Auto) Midwife Comprehensive Metabolic Panel 11/03/20 11/03/20 11/04/20 Range/Units 19:51 22:25 04:44 Sodium 135 L 142 D (137-145) mmol/L Potassium 5.5 H 5.1 H 5.7 H (3.6-5.0) mmol/L Chloride 90.5 L 90.7 L (98-107) mmol/L Carbon Dioxide 38 H 50 H* D (22-30) mmol/L BUN 28 H 26 H (7-17) mg/dL Creatinine 0.8 0.8 (0.6-1.2) mg/dL Glucose 83 117 H (65-100) mg/dL Calcium 9.6 9.8 (8.4-10.2) mg/dL - Imaging and Cardiology Echo: report reviewed (03/2020 showed EF 60-65%, impaired relaxation, mild LVH, RV mildy dilated, mod pulm HTN with RVSP 68mmHg, mod TR, mild to mod MR.) EKG: report reviewed, image reviewed EKG interpretations - Telemetry EKG Rhythm: Sinus Rhythm - EKG Sinus rhythms and dysrhythmias: sinus rhythm AV and intraventricular conduction: intraventricular conducti Assessment and Plan Agree with IV lasix BID. Resume home lopressor and Xarelto. F/u tte. Pulmonary recs noted. Will follow. The patient has been seen in conjunction with Dr. Courtney Bruno who agrees with the assessment and plan of care. - Patient Problems (1) Acute on chronic respiratory failure Current Visit: Yes Status: Acute Qualifiers: Respiratory failure complication: hypoxia Qualified Code(s): J96.21 - Acute and chronic respiratory failure with hypoxia (2) COPD with exacerbation Current Visit: Yes Status: Acute (3) Acute heart failure with preserved ejection fraction (HFpEF) Current Visit: Yes Status: Acute (4) Paroxysmal atrial fibrillation Current Visit: Yes Status: Chronic (5) HTN (hypertension) Current Visit: Yes Status: Chronic Qualifiers: Hypertension type: essential hypertension Qualified Code(s): I10 - Es sential (primary) hypertension (6) HIV (human immunodeficiency virus infection) Current Visit: Yes Status: Chronic Qualifiers: HIV symptom status: asymptomatic Qualified Code(s): Z21 - Asymptomatic human immunodeficiency virus [HIV] infection status (7) History of DVT (deep vein thrombosis) Current Visit: Yes Status: Chronic (8) Pulmonary hypertension Current Visit: Yes Status: Chronic (9) Moderate tricuspid regurgitation Current Visit: Yes Status: Chronic (10) Sleep apnea Current Visit: Yes Status: Chronic Qualifiers: Sleep apnea type: obstructive Qualified Code(s): G47.33 - Obstructive sleep apnea (adult) (pediatric) (11) Morbid obesity Current Visit: Yes Status: Chronic
--- NOTE | 2020-11-04 10:48 | Consultation ---
History of Present Illness Consult date: 11/04/20 Requesting physician: ANA MANCUSO Reason for consult: hypoxemia History of present illness: 45 y/o morbidly obese female, known to me as I saw her on a prior admit for same presentation admitted to the hospital in acute respiratory failure secondary to volume overload and COPD exacerbation. Past History Past Medical History: COPD, DVT, heart failure, other (H/O Lymphoma,HIV) Past Surgical History: Other (Tumor removal from chest in 2013) Social history: smoking (Former smoker) Family history: no significant family history Medications and Allergies Allergies Allergy/AdvReac Type Severity Reaction Status Date / Time No Known Allergies Allergy Verified 11/03/20 18:34 Home Medications Medication Instructions Recorded Confirmed Last Taken Type Dolutegravir [Tivicay] 50 mg PO DAILY 04/12/20 07/17/20 07/16/20 History Emtricitabine/Tenofov Alafenam 200 mg PO DAILY 04/12/20 07/17/20 04/11/20 08:00 History [Descovy 200-25 mg Tablet] Sulfamethoxazole/Trimethoprim 1 each PO DAILY 04/12/20 07/17/20 04/11/20 08:00 History [Bactrim DS TAB] Aspirin [Aspirin BABY CHEW TAB] 81 mg PO DAILY #30 tab.chew 04/16/20 07/17/20 07/17/20 14:03 Rx Furosemide [Lasix TAB] 40 mg PO QDAY #30 tablet 04/16/20 07/17/20 07/17/20 Rx Albuterol Mdi (or & Nicu Only) 2 puff IH QID PRN #8.5 gram 05/29/20 07/17/20 07/17/20 14:03 Rx [ProAir HFA Inhaler] guaiFENesin DM [Guaifenesin Dm 10 ml PO Q4H PRN 10 Days #1 bottle 05/29/20 07/17/20 07/16/20 Rx Syrup] Ferrous Sulfate [Feosol 325 MG tab] 325 mg PO BID #60 tablet 07/29/20 Unknown Rx Metoprolol [Lopressor TAB] 12.5 mg PO BID #60 tablet 07/29/20 Unknown Rx Rivaroxaban [Xarelto] 20 mg PO QDAY #30 tablet 07/29/20 Unknown Rx guaiFENesin [Robitussin] 200 mg PO Q4H PRN 30 Days #1 bottle 07/29/20 Unknown Rx predniSONE 4 tab PO DAILY #21 tablet 07/29/20 Unknown Rx Active Meds: Active Medications Acetaminophen (Acetaminophen 325 Mg Tab) 650 mg PO Q4H PRN PRN Reason: Pain MILD(1-3)/Fever >100.5/LEES Albuterol/Ipratropium (Ipratropium/Albuterol Sulfate 3 Ml Ampul.Neb) 1 ampul IH Q6HRT [facility] Last Admin: 11/04/20 09:51 Dose: 1 ampul Documented by: Furosemide (Furosemide 40 Mg/4 Ml Inj) 40 mg IV BID@0600,1800 [facility] Last Admin: 11/04/20 05:55 Dose: 40 mg Documented by: Heparin Sodium (Porcine) (Heparin 5,000 Unit/1 Ml Vial) 5,000 unit SUB-Q Q8HR [facility] Last Admin: 11/04/20 05:56 Dose: 5,000 unit Documented by: Magnesium Hydroxide (Magnesium Hydroxide (Mom) Oral Liqd Udc) 30 ml PO Q4H PRN PRN Reason: Constipation Methylprednisolone Sodium Succinate (Methylprednisolone Sod Succinate 40 Mg/1 Ml Inj) 40 mg IV Q8HR [facility] Last Admin: 11/04/20 05:55 Dose: 40 mg Documented by: Morphine Sulfate (Morphine 2 Mg/1 Ml Inj) 2 mg IV Q4H PRN PRN Reason: Pain, Moderate (4-6) Ondansetron HCl (Ondansetron 4 Mg/2 Ml Inj) 4 mg IV Q8H PRN PRN Reason: Nausea And Vomiting Sodium Chloride (Sodium Chloride 0.9% 10 Ml Flush Syringe) 10 ml IV BID [facility] Last Admin: 11/04/20 10:14 Dose: 10 ml Documented by: Sodium Chloride (Sodium Chloride 0.9% 10 Ml Flush Syringe) 10 ml IV PRN PRN PRN Reason: LINE FLUSH Physical Examination Vital signs: Vital Signs Pulse Resp BP Pulse Ox 113 H 32 H 144/96 85 11/03/20 18:39 11/03/20 18:39 11/03/20 18:39 11/03/20 18:39 Results - Laboratory Findings CBC and BMP: 11/03/20 19:51 11/04/20 04:44 ABG ABG pH 7.305 pH Units (7.350-7.450) L 11/04/20 08:10 ABG pCO2 104.0 mm Hg 11/04/20 08:10 ABG pO2 84.3 mm Hg (80.0-90.0) 11/04/20 08:10 ABG O2 Saturation 96.5 % (95.0-99.0) 11/04/20 08:10 PT/INR, D-dimer PT 13.5 Sec. (12.2-14.9) 11/04/20 04:44 INR 1.04 (0.87-1.13) 11/04/20 04:44 Abnormal lab findings: Abnormal Labs 11/03/20 11/03/20 11/03/20 00:44 19:51 19:51 RBC 5.12 H Hct 43.1 H MCH 24 L MCHC 29 L RDW 16.4 H Seg Neuts % (Manual) 79.0 H Lymphocytes % (Manual) 7.0 L Monocytes % (Manual) 11.0 H Nucleated RBC % 3.0 H Lymphocytes # (Manual) 0.6 L Monocytes # (Manual) 1.0 H ABG pH 7.265 L ABG pO2 65.7 L ABG HCO3 51.5 H ABG O2 Saturation 90.9 L ABG Base Excess 19.7 H ABG Hemoglobin 11.4 L Oxyhemoglobin 88.1 L Sodium 135 L Potassium 5.5 H Chloride 90.5 L Carbon Dioxide 38 H BUN 28 H Glucose POC Glucose NT-Pro-B Natriuret Pep 11/03/20 11/03/20 11/04/20 19:51 22:25 04:44 RBC Hct MCH MCHC RDW Seg Neuts % (Manual) Lymphocytes % (Manual) Monocytes % (Manual) Nucleated RBC % Lymphocytes # (Manual) Monocytes # (Manual) ABG pH ABG pO2 ABG HCO3 ABG O2 Saturation ABG Base Excess ABG Hemoglobin Oxyhemoglobin Sodium Potassium 5.1 H 5.7 H Chloride 90.7 L Carbon Dioxide 50 H* D BUN 26 H Glucose 117 H POC Glucose NT-Pro-B Natriuret Pep 982.4 H 11/04/20 11/04/20 08:10 09:27 RBC Hct MCH MCHC RDW Seg Neuts % (Manual) Lymphocytes % (Manual) Monocytes % (Manual) Nucleated RBC % Lymphocytes # (Manual) Monocytes # (Manual) ABG pH 7.305 L ABG pO2 ABG HCO3 50.6 H ABG O2 Saturation ABG Base Excess 19.8 H ABG Hemoglobin 11.2 L Oxyhemoglobin 93.7 L Sodium Potassium Chloride Carbon Dioxide BUN Glucose POC Glucose 148 H NT-Pro-B Natriuret Pep Assessment and Plan 45 y/o female with CHF, COPD, pulm HTN and likely untreated/undiagnosed BRIAN with likely OHS 1. Agree with diuresis 2. aBG should qualify her for trilogy. Will discuss with CM 3. Volume control, fluid restriction 4. Ok with steroids but will taper quickly 5. Do not believe she has followed up with office but will call to confirm.
--- NOTE | 2020-11-04 18:37 | Progress Note ---
Subjective Date of service: 11/04/20 Interval history: 45-year-old female with known history of CHF, COPD, hypertension, HIV, sleep apnea, pulmonary hypertension and paroxysmal atrial fibrillation presenting to the emergency room today with a 1 week history of shortness of breath. She has had some mild cough which is nonproductive. She denies any chest pain, no fever or chills, denies any sick contacts and no contact with anyone with COVID-19. Patient denies any headache or dizziness, no nausea or vomiting, no abdominal pain, no hematuria or dysuria. Upon arrival of EMS oxygen saturation was said to be in the 70s and she was subsequently placed on CPAP with minimal improvement of oxygen saturation to about 81%. Work-up in the emergency room today chest x-ray compatible with volume overload. Patient being admitted for CHF exacerbation, respiratory failure. 11/04 patient is somnolent but easily aroused, she is on BiPAP, ABG results reviewed, pulmonary consulted. Cardiology note reviewed. Lab results reviewed Unable to perform review of systems as the patient is somnolent Assessment and plan Acute on chronic combined respiratory failure Likely secondary to COPD exacerbation Continue IV steroids Continue with aggressive neb treatments Dr. Brady consulted and note reviewed Somnolence Secondary to CO2 narcosis Continue BiPAP machine Hyperkalemia Patient was administered calcium gluconate IV, sodium bicarbonate IV, D50 and insulin Repeat potassium was still mildly elevated Patient refused Kayexalate Recheck electrolytes in a.m. CHF with preserved EF EF greater than 55% Cardiology note reviewed Continue IV Lasix Paroxysmal atrial fibrillation Rate controlled Continue Xarelto Telemetry Suspect BRIAN versus obesity hypoventilation syndrome Morbid obesity BMI 62.5 secondary to excess calories Needs counseling prior to discharge Objective - Constitutional Vitals: Vital Signs - 12hr 11/04/20 11/04/20 11/04/20 06:46 07:00 07:16 Temperature Pulse Rate 144 H 107 H Pulse Rate [ Bilateral Throughout] Respiratory Rate Respiratory Rate [Bilateral Throughout] Blood Pressure 148/85 126/74 126/74 Blood Pressure [Right] O2 Sat by Pulse 90 Oximetry 11/04/20 11/04/20 11/04/20 08:00 08:16 08:30 Temperature Pulse Rate 121 H 117 H 106 H Pulse Rate [ Bilateral Throughout] Respiratory 17 16 29 H Rate Respiratory Rate [Bilateral Throughout] Blood Pressure 135/85 135/85 106/53 Blood Pressure [Right] O2 Sat by Pulse 96 99 98 Oximetry 11/04/20 11/04/20 11/04/20 08:46 08:50 09:00 Temperature Pulse Rate 95 H 99 H Pulse Rate [ 26 L Bilateral Throughout] Respiratory 26 H 28 H Rate Respiratory 100 H Rate [Bilateral Throughout] Blood Pressure 106/53 117/71 Blood Pressure [Right] O2 Sat by Pulse 98 90 Oximetry 11/04/20 11/04/20 11/04/20 09:16 09:46 10:00 Temperature Pulse Rate 102 H 96 H 88 Pulse Rate [ Bilateral Throughout] Respiratory 25 H 27 H 28 H Rate Respiratory Rate [Bilateral Throughout] Blood Pressure 117/71 117/71 115/64 Blood Pressure [Right] O2 Sat by Pulse 89 90 86 Oximetry 11/04/20 11/04/20 11/04/20 10:16 10:17 10:22 Temperature 98.7 F Pulse Rate 88 102 H 105 H Pulse Rate [ Bilateral Throughout] Respiratory 28 H 24 28 H Rate Respiratory Rate [Bilateral Throughout] Blood Pressure 115/64 Blood Pressure 116/64 [Right] O2 Sat by Pulse 98 99 97 Oximetry 11/04/20 11/04/20 11/04/20 10:29 10:46 11:00 Temperature Pulse Rate 87 88 Pulse Rate [ Bilateral Throughout] Respiratory 18 30 H 26 H Rate Respiratory Rate [Bilateral Throughout] Blood Pressure 124/66 112/64 Blood Pressure [Right] O2 Sat by Pulse 98 88 88 Oximetry 11/04/20 11/04/20 11/04/20 11:16 11:30 11:46 Temperature Pulse Rate 87 82 84 Pulse Rate [ Bilateral Throughout] Respiratory 32 H 31 H 31 H Rate Respiratory Rate [Bilateral Throughout] Blood Pressure 112/64 113/65 113/65 Blood Pressure [Right] O2 Sat by Pulse 87 87 86 Oximetry 11/04/20 11/04/20 11/04/20 12:00 12:16 12:30 Temperature Pulse Rate 80 78 78 Pulse Rate [ Bilateral Throughout] Respiratory 33 H 30 H 28 H Rate Respiratory Rate [Bilateral Throughout] Blood Pressure 113/61 113/61 128/72 Blood Pressure [Right] O2 Sat by Pulse 86 88 85 Oximetry 11/04/20 11/04/20 11/04/20 12:46 13:16 13:30 Temperature Pulse Rate 87 79 85 Pulse Rate [ Bilateral Throughout] Respiratory 25 H 27 H 19 Rate Respiratory Rate [Bilateral Throughout] Blood Pressure 128/72 119/75 126/76 Blood Pressure [Right] O2 Sat by Pulse 90 89 91 Oximetry 11/04/20 11/04/20 11/04/20 13:46 14:16 14:30 Temperature Pulse Rate 82 107 H 91 H Pulse Rate [ Bilateral Throughout] Respiratory 18 21 22 Rate Respiratory Rate [Bilateral Throughout] Blood Pressure 126/76 107/64 117/78 Blood Pressure [Right] O2 Sat by Pulse 98 92 96 Oximetry 11/04/20 11/04/20 11/04/20 14:46 15:00 15:16 Temperature Pulse Rate 92 H 97 H 92 H Pulse Rate [ Bilateral Throughout] Respiratory 21 18 27 H Rate Respiratory Rate [Bilateral Throughout] Blood Pressure 117/78 129/75 129/75 Blood Pressure [Right] O2 Sat by Pulse 98 96 97 Oximetry 11/04/20 11/04/20 15:24 16:19 Temperature Pulse Rate Pulse Rate [ Bilateral Throughout] Respiratory 16 Rate Respiratory Rate [Bilateral Throughout] Blood Pressure Blood Pressure [Right] O2 Sat by Pulse 94 Oximetry General appearance: Present: no acute distress, obese - EENT Eyes: PERRL, EOM intact ENT: hearing intact - Neck Neck: supple, normal ROM - Respiratory Respiratory: bilateral: diminished, negative: rhonchi - Cardiovascular Rhythm: regular Heart Sounds: Present: S1 & S2 Extremity abnormal: edema (Bilateral 2+ nonpitting edema) - Gastrointestinal General gastrointestinal: Present: soft, non-tender Rectal Exam: deferred - Genitourinary Female genitourinary: deferred - Integumentary Integumentary: clear - Neurologic Neurologic: moves all extremities, other (Limited neurological examination secondary to somnolence) - Labs CBC & Chem 7: 11/03/20 19:51 11/04/20 12:46 Labs: Abnormal lab results 11/03/20 11/03/20 11/03/20 Range/Units 00:44 19:51 19:51 RBC 5.12 H (3.65-5.03) M/mm3 Hct 43.1 H (30.3-42.9) % MCH 24 L (28-32) pg MCHC 29 L (30-34) % RDW 16.4 H (13.2-15.2) % Seg Neuts % (Manual) 79.0 H (40.0-70.0) % Lymphocytes % (Manual) 7.0 L (13.4-35.0) % Monocytes % (Manual) 11.0 H (0.0-7.3) % Nucleated RBC % 3.0 H (0.0-0.9) % Lymphocytes # (Manual) 0.6 L (1.2-5.4) K/mm3 Monocytes # (Manual) 1.0 H (0.0-0.8) K/mm3 ABG pH 7.265 L (7.350-7.450) pH Units ABG pO2 65.7 L (80.0-90.0) mm Hg ABG HCO3 51.5 H (20.0-26.0) mmol/L ABG O2 Saturation 90.9 L (95.0-99.0) % ABG Base Excess 19.7 H (-2.0-3.0) mmol/L ABG Hemoglobin 11.4 L (12.0-16.0) gm/dl Oxyhemoglobin 88.1 L (95.0-99.0) % Sodium 135 L (137-145) mmol/L Potassium 5.5 H (3.6-5.0) mmol/L Chloride 90.5 L (98-107) mmol/L Carbon Dioxide 38 H (22-30) mmol/L BUN 28 H (7-17) mg/dL Glucose (65-100) mg/dL POC Glucose (70-105) mg/dL NT-Pro-B Natriuret Pep (0-450) pg/mL 11/03/20 11/03/20 11/04/20 Range/Units 19:51 22:25 04:44 RBC (3.65-5.03) M/mm3 Hct (30.3-42.9) % MCH (28-32) pg MCHC (30-34) % RDW (13.2-15.2) % Seg Neuts % (Manual) (40.0-70.0) % Lymphocytes % (Manual) (13.4-35.0) % Monocytes % (Manual) (0.0-7.3) % Nucleated RBC % (0.0-0.9) % Lymphocytes # (Manual) (1.2-5.4) K/mm3 Monocytes # (Manual) (0.0-0.8) K/mm3 ABG pH (7.350-7.450) pH Units ABG pO2 (80.0-90.0) mm Hg ABG HCO3 (20.0-26.0) mmol/L ABG O2 Saturation (95.0-99.0) % ABG Base Excess (-2.0-3.0) mmol/L ABG Hemoglobin (12.0-16.0) gm/dl Oxyhemoglobin (95.0-99.0) % Sodium (137-145) mmol/L Potassium 5.1 H 5.7 H (3.6-5.0) mmol/L Chloride 90.7 L (98-107) mmol/L Carbon Dioxide 50 H* D (22-30) mmol/L BUN 26 H (7-17) mg/dL Glucose 117 H (65-100) mg/dL POC Glucose (70-105) mg/dL NT-Pro-B Natriuret Pep 982.4 H (0-450) pg/mL 11/04/20 11/04/20 11/04/20 Range/Units 08:10 09:27 12:46 RBC (3.65-5.03) M/mm3 Hct (30.3-42.9) % MCH (28-32) pg MCHC (30-34) % RDW (13.2-15.2) % Seg Neuts % (Manual) (40.0-70.0) % Lymphocytes % (Manual) (13.4-35.0) % Monocytes % (Manual) (0.0-7.3) % Nucleated RBC % (0.0-0.9) % Lymphocytes # (Manual) (1.2-5.4) K/mm3 Monocytes # (Manual) (0.0-0.8) K/mm3 ABG pH 7.305 L (7.350-7.450) pH Units ABG pO2 (80.0-90.0) mm Hg ABG HCO3 50.6 H (20.0-26.0) mmol/L ABG O2 Saturation (95.0-99.0) % ABG Base Excess 19.8 H (-2.0-3.0) mmol/L ABG Hemoglobin 11.2 L (12.0-16.0) gm/dl Oxyhemoglobin 93.7 L (95.0-99.0) % Sodium (137-145) mmol/L Potassium 5.5 H (3.6-5.0) mmol/L Chloride (98-107) mmol/L Carbon Dioxide (22-30) mmol/L BUN (7-17) mg/dL Glucose (65-100) mg/dL POC Glucose 148 H (70-105) mg/dL NT-Pro-B Natriuret Pep (0-450) pg/mL
[2020-11-04] MEDS: METOPROLOL TARTRATE 25 MG TAB PO SCH (21:47)
[2020-11-04] MEDS ORDERED: diphenhydrAMINE 25 MG CAP PO ONE (22:24)
[2020-11-05 05:32] LABS: Mean Corpuscular HGB Conc 28 % (30-34); Mean Corpuscular Volume 88 fl (79-97); Platelet Count 239 K/mm3 (140-440); Red Blood Count 4.44 M/mm3 (3.65-5.03); Red Cell Distribution Width 16.5 % (13.2-15.2)
[2020-11-05 05:40] LABS: Hematocrit 38.8 % (30.3-42.9)
[2020-11-05] MEDS: FUROSEMIDE 40 MG/4 ML INJ IV SCH (05:41)
[2020-11-05] MEDS: methylPREDNISolone Sod Succinate 40 MG/1 ML INJ IV SCH ×3 (05:41→22:39)
[2020-11-05 05:51] LABS: BUN/Creatinine Ratio 37; Blood Urea Nitrogen 37 mg/dL (7-17); Calcium 9.5 mg/dL (8.4-10.2); Hemolysis Index 0
[2020-11-05] MEDS: IPRATROPIUM/ALBUTEROL SULFATE 3 ML AMPUL.NEB IH SCH ×4 (06:05→23:05)
[2020-11-05] MEDS ORDERED: SODIUM POLYSTYRENE 15 GM/60 ML ORAL LIQD PO ONE (09:00)
[2020-11-05] MEDS: RIVAROXABAN 20 MG TAB PO SCH (10:19)
[2020-11-05] MEDS: METOPROLOL TARTRATE 25 MG TAB PO SCH ×2 (10:24→22:32)
--- NOTE | 2020-11-05 10:57 | Progress Note ---
Assessment and Plan Pt appears to be clinically improving. Hyperkalemia noted - pt refused kayexalate, calcium gluconate ordered. Will reduce IV lasix to daily dosing and f/u BMP in AM. The patient has been seen in conjunction with Dr. Courtney Bruno who agrees with the assessment and plan of care. - Patient Problems (1) Acute on chronic respiratory failure Current Visit: Yes Status: Acute Qualifiers: Respiratory failure complication: hypoxia Qualified Code(s): J96.21 - Acute and chronic respiratory failure with hypoxia (2) COPD with exacerbation Current Visit: Yes Status: Acute (3) Acute heart failure with preserved ejection fraction (HFpEF) Current Visit: Yes Status: Acute (4) Paroxysmal atrial fibrillation Current Visit: Yes Status: Chronic (5) HTN (hypertension) Current Visit: Yes Status: Chronic Qualifiers: Hypertension type: essential hypertension Qualified Code(s): I10 - Essential (primary) hypertension (6) HIV (human immunodeficiency virus infection) Current Visit: Yes Status: Chronic Qualifiers: HIV symptom status: asymptomatic Qualified Code(s): Z21 - Asymptomatic human immunodeficiency virus [HIV] infection status (7) History of DVT (deep vein thrombosis) Current Visit: Yes Status: Chronic (8) Pulmonary hypertension Current Visit: Yes Status: Chronic (9) Moderate tricuspid regurgitation Current Visit: Yes Status: Chronic (10) Sleep apnea Current Visit: Yes Status: Chronic Qualifiers: Sleep apnea type: obstructive Qualified Code(s): G47.33 - Obstructive sleep apnea (adult) (pediatric) (11) Morbid obesity Current Visit: Yes Status: Chronic Subjective Date of service: 11/05/20 Principal diagnosis: respiratory failure Interval history: pt resting in bed, feeling better, on O2 via NC. in SR on tele. Objective Last Vital Signs Temp 98.2 F 11/05/20 07:42 Pulse 78 11/05/20 10:24 Resp 18 11/05/20 09:40 BP 105/64 11/05/20 10:24 Pulse Ox 94 11/05/20 10:00 - Physical Examination General: No Apparent Distress HEENT: Positive: PERRL Neck: Positive: neck supple, trachea midline Cardiac: Positive: Reg Rate and Rhythm, S1/S2 Lungs: Positive: Decreased Breath Sounds, Oxygen Neuro: Positive: Grossly Intact Abdomen: Negative: Tender Skin: Negative: Rash Musculoskeletal: No Pain - Labs and Meds CBC 11/05/20 Range/Units 04:56 WBC 10.9 (4.5-11.0) K/mm3 RBC 4.44 (3.65-5.03) M/mm3 Hgb 11.0 (10.1-14.3) gm/dl Hct 38.8 (30.3-42.9) % Plt Count 239 (140-440) K/mm3 Comprehensive Metabolic Panel 11/04/20 11/05/20 Range/Units 12:46 04:56 Sodium 143 (137-145) mmol/L Potassium 5.5 H 5.5 H (3.6-5.0) mmol/L Chloride 90.3 L (98-107) mmol/L Carbon Dioxide 47 H* (22-30) mmol/L BUN 37 H (7-17) mg/dL Creatinine 1.0 (0.6-1.2) mg/dL Glucose 117 H (65-100) mg/dL Calcium 9.5 (8.4-10.2) mg/dL - Imaging and Cardiology EKG: report reviewed, image reviewed Echo: report reviewed (03/2020 showed EF 60-65%, impaired relaxation, mild LVH, RV mildy dilated, mod pulm HTN with RVSP 68mmHg, mod TR, mild to mod MR.) - EKG Sinus rhythms and dysrhythmias: sinus rhythm AV and intraventricular conduction: intraventricular conducti
[2020-11-05 11:35] LABS: ABG Base Excess 24.7 mmol/L (-2.0-3.0); ABG Methemoglobin 0.7 % (0.0-1.5); ABG Oxygen Saturation 77.9 % (95.0-99.0); ABG PCO2 108.4 mm Hg; ABG PH 7.329 pH Units (7.350-7.450); ABG PO2 43.9 mm Hg (80.0-90.0)
[2020-11-05 11:37] LABS: ABG HCO3 55.8 mmol/L (20.0-26.0)
--- NOTE | 2020-11-05 13:20 | Progress Note ---
Assessment and Plan 45 y/o female with CHF, COPD, pulm HTN and likely untreated/undiagnosed BRIAN with likely OHS 1. Agree with diuresis 2. aBG should qualify her for trilogy. Needs a CM consult 3. Volume control, fluid restriction 4. Please change to Prednisone 60 daily and tapers as follows: 60 daily for 3 days, 40 daily for 3 days, 20 daily for 3 days, 10 daily for 3 days then stop. 5. She never followed up with us post discharge. Patient requires volume ventilation and all other alternative therapies have been considered and ruled out due to the severity of the disease and life- threatening conditions including CO2 retention. Due to increased probability of acute exacerbation, patient requires mouthpiece ventilation to be used during the day as needed, in addition to QHS usage with facemask. Patient suffers from chronic respiratory failure secondary to COPD. Subjective Date of service: 11/05/20 Principal diagnosis: respiratory failure Interval history: Down to 4 liters NC. I/O not accurate but clearly volume removal has helped. Objective Vital Signs - 12hr 11/05/20 11/05/20 11/05/20 02:00 03:00 04:00 Temperature Pulse Rate 79 75 80 Pulse Rate [ Bilateral Throughout] Respiratory 27 H 19 22 Rate Respiratory Rate [Bilateral Throughout] Blood Pressure 114/58 127/75 117/66 Blood Pressure [Right] O2 Sat by Pulse 100 98 97 Oximetry 11/05/20 11/05/20 11/05/20 05:00 06:00 07:00 Temperature Pulse Rate 73 73 69 Pulse Rate [ Bilateral Throughout] Respiratory 18 16 14 Rate Respiratory Rate [Bilateral Throughout] Blood Pressure 117/68 114/69 108/57 Blood Pressure [Right] O2 Sat by Pulse 100 100 100 Oximetry 11/05/20 11/05/20 11/05/20 07:42 08:00 09:00 Temperature 98.2 F Pulse Rate 69 69 93 H Pulse Rate [ Bilateral Throughout] Respiratory 20 13 16 Rate Respiratory Rate [Bilateral Throughout] Blood Pressure 111/75 99/66 Blood Pressure 100/57 [Right] O2 Sat by Pulse 100 100 100 Oximetry 11/05/20 11/05/20 11/05/20 09:40 10:00 10:24 Temperature Pulse Rate 92 H 78 Pulse Rate [ 79 Bilateral Throughout] Respiratory 14 Rate Respiratory 18 Rate [Bilateral Throughout] Blood Pressure 105/64 105/64 Blood Pressure [Right] O2 Sat by Pulse 79 L Oximetry 11/05/20 11/05/20 11:00 12:00 Temperature Pulse Rate 77 83 Pulse Rate [ Bilateral Throughout] Respiratory 21 19 Rate Respiratory Rate [Bilateral Throughout] Blood Pressure 101/61 118/75 Blood Pressure [Right] O2 Sat by Pulse 99 99 Oximetry CBC and BMP: 11/05/20 04:56 11/05/20 04:56 ABG, PT/INR, D-dimer: ABG ABG pH 7.329 pH Units (7.350-7.450) L 11/05/20 11:18 ABG pCO2 108.4 mm Hg 11/05/20 11:18 ABG pO2 43.9 mm Hg (80.0-90.0) L 11/05/20 11:18 ABG O2 Saturation 77.9 % (95.0-99.0) L 11/05/20 11:18 PT/INR, D-dimer PT 13.5 Sec. (12.2-14.9) 11/04/20 04:44 INR 1.04 (0.87-1.13) 11/04/20 04:44 Abnormal lab findings: Abnormal Labs 11/03/20 11/03/20 11/03/20 00:44 19:51 19:51 RBC 5.12 H Hct 43.1 H MCH 24 L MCHC 29 L RDW 16.4 H Seg Neuts % (Manual) 79.0 H Lymphocytes % (Manual) 7.0 L Monocytes % (Manual) 11.0 H Nucleated RBC % 3.0 H Lymphocytes # (Manual) 0.6 L Monocytes # (Manual) 1.0 H ABG pH 7.265 L ABG pO2 65.7 L ABG HCO3 51.5 H ABG O2 Saturation 90.9 L ABG Base Excess 19.7 H ABG Hemoglobin 11.4 L Oxyhemoglobin 88.1 L Sodium 135 L Potassium 5.5 H Chloride 90.5 L Carbon Dioxide 38 H BUN 28 H Glucose POC Glucose NT-Pro-B Natriuret Pep 11/03/20 11/03/20 11/04/20 19:51 22:25 04:44 RBC Hct MCH MCHC RDW Seg Neuts % (Manual) Lymphocytes % (Manual) Monocytes % (Manual) Nucleated RBC % Lymphocytes # (Manual) Monocytes # (Manual) ABG pH ABG pO2 ABG HCO3 ABG O2 Saturation ABG Base Excess ABG Hemoglobin Oxyhemoglobin Sodium Potassium 5.1 H 5.7 H Chloride 90.7 L Carbon Dioxide 50 H* D BUN 26 H Glucose 117 H POC Glucose NT-Pro-B Natriuret Pep 982.4 H 11/04/20 11/04/20 11/04/20 08:10 09:27 12:46 RBC Hct MCH MCHC RDW Seg Neuts % (Manual) Lymphocytes % (Manual) Monocytes % (Manual) Nucleated RBC % Lymphocytes # (Manual) Monocytes # (Manual) ABG pH 7.305 L ABG pO2 ABG HCO3 50.6 H ABG O2 Saturation ABG Base Excess 19.8 H ABG Hemoglobin 11.2 L Oxyhemoglobin 93.7 L Sodium Potassium 5.5 H Chloride Carbon Dioxide BUN Glucose POC Glucose 148 H NT-Pro-B Natriuret Pep 11/05/20 11/05/20 11/05/20 04:56 04:56 11:18 RBC Hct MCH 25 L MCHC 28 L RDW 16.5 H Seg Neuts % (Manual) Lymphocytes % (Manual) Monocytes % (Manual) Nucleated RBC % Lymphocytes # (Manual) Monocytes # (Manual) ABG pH 7.329 L ABG pO2 43.9 L ABG HCO3 55.8 H ABG O2 Saturation 77.9 L ABG Base Excess 24.7 H ABG Hemoglobin 11.1 L Oxyhemoglobin 75.8 L Sodium Potassium 5.5 H Chloride 90.3 L Carbon Dioxide 47 H* BUN 37 H Glucose 117 H POC Glucose NT-Pro-B Natriuret Pep
--- NOTE | 2020-11-05 16:38 | Progress Note ---
Subjective Date of service: 11/05/20 Principal diagnosis: respiratory failure Interval history: 45-year-old female with known history of CHF, COPD, hypertension, HIV, sleep apnea, pulmonary hypertension and paroxysmal atrial fibrillation presenting to the emergency room today with a 1 week history of shortness of breath. She has had some mild cough which is nonproductive. She denies any chest pain, no fever or chills, denies any sick contacts and no contact with anyone with COVID-19. Patient denies any headache or dizziness, no nausea or vomiting, no abdominal pain, no hematuria or dysuria. Upon arrival of EMS oxygen saturation was said to be in the 70s and she was subsequently placed on CPAP with minimal improvement of oxygen saturation to about 81%. Work-up in the emergency room today chest x-ray compatible with volume overload. Patient being admitted for CHF exacerbation, respiratory failure. 11/04 patient is somnolent but easily aroused, she is on BiPAP, ABG results rev iewed, pulmonary consulted. Cardiology note reviewed. 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 Brady consulted and note reviewed Somnolence - improved patient is A&O today Secondary to CO2 narcosis Patient has been off BIPAP and on NC Hyperkalemia Patient was administered calcium gluconate IV, sodium bicarbonate IV, D50 and insulin Repeat potassium this am is 5.5 with no improvement She refused ricky exalate yesterday Stressed the need to take it but she refused stating she does not want to mess up with stool Recheck electrolytes in a.m. CHF with preserved EF EF greater than 55% Cardiology note reviewed Continue IV Lasix Paroxysmal atrial fibrillation Rate controlled Continue Xarelto Telemetry Suspect BRIAN versus obesity hypoventilation syndrome OP sleep study Morbid obesity BMI 62.5 secondary to excess calories Needs counseling prior to discharge Objective - Constitutional Vitals: Vital Signs - 12hr 11/05/20 11/05/20 11/05/20 05:00 06:00 07:00 Temperature Pulse Rate 73 73 69 Pulse Rate [ Bilateral Throughout] Respiratory 18 16 14 Rate Respiratory Rate [Bilateral Throughout] Blood Pressure 117/68 114/69 108/57 Blood Pressure [Right] O2 Sat by Pulse 100 100 100 Oximetry 11/05/20 11/05/20 11/05/20 07:42 08:00 09:00 Temperature 98.2 F Pulse Rate 69 69 93 H Pulse Rate [ Bilateral Throughout] Respiratory 20 13 16 Rate Respiratory Rate [Bilateral Throughout] Blood Pressure 111/75 99/66 Blood Pressure 100/57 [Right] O2 Sat by Pulse 100 100 100 Oximetry 11/05/20 11/05/20 11/05/20 09:40 10:00 10:24 Temperature Pulse Rate 92 H 78 Pulse Rate [ 79 Bilateral Throughout] Respiratory 14 Rate Respiratory 18 Rate [Bilateral Throughout] Blood Pressure 105/64 105/64 Blood Pressure [Right] O2 Sat by Pulse 79 L Oximetry 11/05/20 11/05/20 11/05/20 11:00 12:00 13:00 Temperature Pulse Rate 77 83 78 Pulse Rate [ Bilateral Throughout] Respiratory 21 19 16 Rate Respiratory Rate [Bilateral Throughout] Blood Pressure 101/61 118/75 121/79 Blood Pressure [Right] O2 Sat by Pulse 99 99 99 Oximetry 11/05/20 11/05/20 11/05/20 14:00 15:00 15:48 Temperature Pulse Rate 78 86 Pulse Rate [ 89 Bilateral Throughout] Respiratory 14 23 Rate Respiratory 18 Rate [Bilateral Throughout] Blood Pressure 113/73 113/73 Blood Pressure [Right] O2 Sat by Pulse 100 94 Oximetry 11/05/20 16:00 Temperature Pulse Rate 78 Pulse Rate [ Bilateral Throughout] Respiratory 18 Rate Respiratory Rate [Bilateral Throughout] Blood Pressure 126/81 Blood Pressure [Right] O2 Sat by Pulse 100 Oximetry General appearance: Present: no acute distress, obese - EENT Eyes: PERRL, EOM intact ENT: hearing intact, clear oral mucosa - Neck Neck: supple, normal ROM, no masses or JVD - Respiratory Respiratory: bilateral: diminished, negative: rhonchi, wheezing - Cardiovascular Rhythm: other (mildly tachy) Heart Sounds: Present: S1 & S2 Extremities: No edema - Gastrointestinal General gastrointestinal: Present: soft, non-tender Rectal Exam: deferred - Genitourinary Female genitourinary: deferred - Integumentary Integumentary: clear - Musculoskeletal Musculoskeletal: strength equal bilaterally - Labs CBC & Chem 7: 11/05/20 04:56 11/05/20 04:56 Labs: Abnormal lab results 11/05/20 11/05/20 11/05/20 Range/Units 04:56 04:56 11:18 MCH 25 L (28-32) pg MCHC 28 L (30-34) % RDW 16.5 H (13.2-15.2) % ABG pH 7.329 L (7.350-7.450) pH Units ABG pO2 43.9 L (80.0-90.0) mm Hg ABG HCO3 55.8 H (20.0-26.0) mmol/L ABG O2 Saturation 77.9 L (95.0-99.0) % ABG Base Excess 24.7 H (-2.0-3.0) mmol/L ABG Hemoglobin 11.1 L (12.0-16.0) gm/dl Oxyhemoglobin 75.8 L (95.0-99.0) % Potassium 5.5 H (3.6-5.0) mmol/L Chloride 90.3 L (98-107) mmol/L Carbon Dioxide 47 H* (22-30) mmol/L BUN 37 H (7-17) mg/dL Glucose 117 H (65-100) mg/dL
[2020-11-06] MEDS: FUROSEMIDE 40 MG/4 ML INJ IV SCH (05:31)
[2020-11-06] MEDS: methylPREDNISolone Sod Succinate 40 MG/1 ML INJ IV SCH (05:31)
[2020-11-06 06:53] LABS: BUN/Creatinine Ratio 40; Blood Urea Nitrogen 32 mg/dL (7-17); Calcium 9.6 mg/dL (8.4-10.2); Hemolysis Index 67
[2020-11-06] MEDS: IPRATROPIUM/ALBUTEROL SULFATE 3 ML AMPUL.NEB IH SCH ×4 (08:36→19:46)
[2020-11-06] MEDS ORDERED: acetaZOLAMIDE 250 MG TAB PO NR (09:14)
--- NOTE | 2020-11-06 09:14 | Progress Note ---
Assessment and Plan Assessment and plan: 45-year-old female with known history of CHF, COPD, hypertension, HIV, sleep apnea, pulmonary hypertension and paroxysmal atrial fibrillation presenting to the emergency room today with a 1 week history of shortness of breath. She has had some mild cough which is nonproductive. She denies any chest pain, no fever or chills, denies any sick contacts and no contact with anyone with COVID-19. Patient denies any headache or dizziness, no nausea or vomiting, no abdominal pain, no hematuria or dysuria. Upon arrival of EMS oxygen saturation was said to be in the 70s and she was subsequently placed on CPAP with minimal improvement of oxygen saturation to about 81%. Work-up in the emergency room today chest x-ray compatible with volume overload. Patient being admitted for CHF exacerbation, respiratory failure. 11/04 patient is somnolent but easily aroused, she is on BiPAP, ABG results reviewed, pulmonary consulted. Cardiology note reviewed. Lab results reviewed Unable to perform review of systems as the patient is somnolent 11/06: Patient seen and examined this morning we will bring her oxygen flow to 4 L and monitor her saturation closely. Of discussed with nursing staff. She was hypotensive on admission and this has seemed to resolved all her home medication has been restarted we will also monitor closely to ensure no further hypotension noted. I have also gone ahead to change steroids to p.o. while monitoring metabolic alkalosis and hyperkalemia. She refused Kayexalate dose initially we will give another dose and have discussed the importance of this with the patient. Defer to cardiology if patient should be changed to Bumex rather than Lasix. Patient informs me that she does have a trilogy and has had it for a few months already at home. Anticipate discharge in a.m. Assessment and plan Acute on chronic combined respiratory failure Secondary to COPD exacerbation Today's ABG on NC reviewed Suspect venous sample ( O2 sat 79%) However O2 sat on pulse ox is 96% ABG result was not addressed by landscape architecture professor Continue IV steroids 40 mg q 8hrs Continue with aggressive neb treatments Dr. Brady consulted and note reviewed Somnolence - improved patient is A&O today Secondary to CO2 narcosis Patient has been off BIPAP and on NC Hyperkalemia Patient was administered calcium gluconate IV, sodium bicarbonate IV, D50 and insulin Repeat potassium this am is 5.5 with no improvement She refused ricky exalate yesterday Stressed the need to take it but she refused stating she does not want to mess up with stool Recheck electrolytes in a.m. Acute on chronic CHF with preserved EF EF greater than 55% Cardiology note reviewed Continue IV Lasix Paroxysmal atrial fibrillation Rate controlled Continue Xarelto Telemetry Suspect BRIAN versus obesity hypoventilation syndrome OP sleep study Morbid obesity BMI 62.5 secondary to excess calories Needs counseling prior to discharge Hypertension possible secondary to cardiogenic shock History Interval history: Patient seen and examined this morning reports improvement she think she is close to her baseline but on looking at the oxygen liter flow I noticed that it was at 9 L this morning while the patient is normally on 4 L at home otherwise she reports improvement in her symptoms Hospitalist Physical - Physical exam Narrative exam: VITAL SIGNS: Reviewed. GENERAL: The patient appears normally developed, morbidly obese baseline shortness of breath vital signs as documented. HEAD: No signs of head trauma. EYES: Pupils are equal. Extraocular motions intact. EARS: Hearing grossly intact. MOUTH: Oropharynx is normal. NECK: No adenopathy, no JVD. CHEST: Chest with diminished breath sounds bilaterally. No wheezes, rales, or rhonchi. CARDIAC: Regular rate and rhythm. S1 and S2, without murmurs, gallops, or rubs. VASCULAR: No Edema. Peripheral pulses normal and equal in all extremities. ABDOMEN: Soft, non tender and non distended. No rebound or guarding, and no masses palpated. Bowel Sounds normal. MUSCULOSKELETAL: Good range of motion of all major joints. Extremities without clubbing, cyanosis.mild chronic venous changes noted. NEUROLOGIC EXAM: Alert and oriented x 3 No focal sensory or strength deficits. Speech normal. Follows commands. PSYCHIATRIC: Mood normal. SKIN: detail exam as documented in skin assessment - Constitutional Vitals: Temp Pulse Resp BP Pulse Ox 98.5 F 83 19 122/66 97 11/06/20 03:05 11/06/20 08:36 11/06/20 08:36 11/06/20 03:05 11/06/20 08:25 General appearance: Present: no acute distress, obese Results - Labs CBC & Chem 7: 11/05/20 04:56 11/06/20 04:36 Labs: Laboratory Last Values WBC 10.9 K/mm3 (4.5-11.0) 11/05/20 04:56 RBC 4.44 M/mm3 (3.65-5.03) 11/05/20 04:56 Hgb 11.0 gm/dl (10.1-14.3) 11/05/20 04:56 Hct 38.8 % (30.3-42.9) 11/05/20 04:56 MCV 88 fl (79-97) 11/05/20 04:56 MCH 25 pg (28-32) L 11/05/20 04:56 MCHC 28 % (30-34) L 11/05/20 04:56 RDW 16.5 % (13.2-15.2) H 11/05/20 04:56 Plt Count 239 K/mm3 (140-440) 11/05/20 04:56 Lymph % (Auto) Well Dr[employer] 11/03/20 19:51 [place] % (Auto) Well [employer] 11/03/20 19:51 Eos % (Auto) Well [employer] 11/03/20 19:51 Baso % (Auto) Well [employer] 11/03/20 19:51 Lymph # (Auto) Well [employer] 11/03/20 19:51 [place] # (Auto) Well [employer] 11/03/20 19:51 Eos # (Auto) Well [employer] 11/03/20 19:51 Baso # (Auto) Well [employer] 11/03/20 19:51 Add Manual Diff Complete 11/03/20 19:51 Total Counted 100 11/03/20 19:51 Seg Neutrophils % Well [employer] 11/03/20 19:51 Seg Neuts % (Manual) 79.0 % (40.0-70.0) H 11/03/20 19:51 Band Neutrophils % 3.0 % 11/03/20 19:51 Lymphocytes % (Manual) 7.0 % (13.4-35.0) L 11/03/20 19:51 Monocytes % (Manual) 11.0 % (0.0-7.3) H 11/03/20 19:51 Nucleated RBC % 3.0 % (0.0-0.9) H 11/03/20 19:51 Seg Neutrophils # Well Drill Operator [employer] 11/03/20 19:51 Seg Neutrophils # Man 7.3 K/mm3 (1.8-7.7) 11/03/20 19:51 Band Neutrophils # 0.3 K/mm3 11/03/20 19:51 Lymphocytes # (Manual) 0.6 K/mm3 (1.2-5.4) L 11/03/20 19:51 Abs React Lymphs (Man) 0.0 K/mm3 11/03/20 19:51 Monocytes # (Manual) 1.0 K/mm3 (0.0-0.8) H 11/03/20 19:51 Eosinophils # (Manual) 0.0 K/mm3 (0.0-0.4) 11/03/20 19:51 Basophils # (Manual) 0.0 K/mm3 (0.0-0.1) 11/03/20 19:51 Metamyelocytes # 0.0 K/mm3 11/03/20 19:51 Myelocytes # 0.0 K/mm3 11/03/20 19:51 Promyelocytes # 0.0 K/mm3 11/03/20 19:51 Blast Cells # 0.0 K/mm3 11/03/20 19:51 WBC Morphology Not Reportable 11/03/20 19:51 Hypersegmented Neuts Not Reportable 11/03/20 19:51 Hyposegmented Neuts Not Reportable 11/03/20 19:51 Hypogranular Neuts Not Reportable 11/03/20 19:51 Smudge Cells Not Reportable 11/03/20 19:51 Toxic Granulation Not Reportable 11/03/20 19:51 Toxic Vacuolation Not Reportable 11/03/20 19:51 Dohle Bodies Not Reportable 11/03/20 19:51 Pelger-Huet Anomaly Not Reportable 11/03/20 19:51 Erika Rods Not Reportable 11/03/20 19:51 Platelet Estimate Consistent w auto 11/03/20 19:51 Clumped Platelets Not Reportable 11/03/20 19:51 Plt Clumps, EDTA Not Reportable 11/03/20 19:51 Large Platelets Not Reportable 11/03/20 19:51 Giant Platelets Not Reportable 11/03/20 19:51 Platelet Satelliting Not Reportable 11/03/20 19:51 Plt Morphology Comment Not Reportable 11/03/20 19:51 RBC Morphology Not Reportable 11/03/20 19:51 Dimorphic RBCs Not Reportable 11/03/20 19:51 Polychromasia Rare 11/03/20 19:51 Hypochromasia 1+ 12/14/20 19:51 Poikilocytosis Not Reportable 11/03/20 19:51 Anisocytosis Few 11/03/20 19:51 Microcytosis Not Reportable 11/03/20 19:51 Macrocytosis Not Reportable 11/03/20 19:51 Spherocytes Not Reportable 11/03/20 19:51 Pappenheimer Bodies Not Reportable 11/03/20 19:51 Sickle Cells Not Reportable 11/03/20 19:51 Target Cells Not Reportable 11/03/20 19:51 Tear Drop Cells Not Reportable 11/03/20 19:51 Ovalocytes Not Reportable 11/03/20 19:51 Helmet Cells Not Reportable 11/03/20 19:51 [place] Bodies Not Reportable 11/03/20 19:51 [place] Rings Not Reportable 11/03/20 19:51 [place] Cells Not Reportable 11/03/20 19:51 Bite Cells Not Reportable 11/03/20 19:51 Crenated Cell Not Reportable 11/03/20 19:51 Elliptocytes Not Reportable 11/03/20 19:51 Acanthocytes (Spur) Not Reportable 11/03/20 19:51 Rouleaux Not Reportable 11/03/20 19:51 Hemoglobin C Crystals Not Reportable 11/03/20 19:51 Schistocytes Not Reportable 11/03/20 19:51 Malaria parasites Not Reportable 11/03/20 19:51 Will Bodies Not Reportable 11/03/20 19:51 Hem Pathologist Commnt No 11/03/20 19:51 PT 13.5 Sec. (12.2-14.9) 11/04/20 04:44 INR 1.04 (0.87-1.13) 11/04/20 04:44 ABG pH 7.329 pH Units (7.350-7.450) L 11/05/20 11:18 ABG pCO2 108.4 mm Hg 11/05/20 11:18 ABG pO2 43.9 mm Hg (80.0-90.0) L 11/05/20 11:18 ABG HCO3 55.8 mmol/L (20.0-26.0) H 11/05/20 11:18 ABG O2 Saturation 77.9 % (95.0-99.0) L 11/05/20 11:18 ABG O2 Content 11.8 (0.0-44) 11/05/20 11:18 ABG Base Excess 24.7 mmol/L (-2.0-3.0) H 11/05/20 11:18 ABG Hemoglobin 11.1 gm/dl (12.0-16.0) L 11/05/20 11:18 ABG Carboxyhemoglobin 2.0 % (0.0-5.0) 11/05/20 11:18 ABG Methemoglobin 0.7 % (0.0-1.5) 11/05/20 11:18 Oxyhemoglobin 75.8 % (95.0-99.0) L 11/05/20 11:18 FiO2 36 % 11/05/20 11:18 Sodium 142 mmol/L (137-145) 11/06/20 04:36 Potassium 5.2 mmol/L (3.6-5.0) H 11/06/20 04:36 Chloride 87.9 mmol/L (98-107) L 11/06/20 04:36 Carbon Dioxide 49 mmol/L (22-30) H* 11/06/20 04:36 Anion Gap 10 mmol/L 11/06/20 04:36 BUN 32 mg/dL (7-17) H 11/06/20 04:36 Creatinine 0.8 mg/dL (0.6-1.2) 11/06/20 04:36 Estimated GFR > 60 ml/min 11/06/20 04:36 BUN/Creatinine Ratio 40 % 11/06/20 04:36 Glucose 127 mg/dL (65-100) H 11/06/20 04:36 POC Glucose 148 mg/dL (70-105) H 11/04/20 09:27 Calcium 9.6 mg/dL (8.4-10.2) 11/06/20 04:36 NT-Pro-B Natriuret Pep 982.4 pg/mL (0-450) H 11/03/20 19:51 Microbiology: Microbiology 11/03/20 19:51 Peripheral/Venous Blood Culture - Preliminary NO GROWTH AFTER 48 HOURS 11/03/20 19:51 Peripheral/Venous Blood Culture - Preliminary NO GROWTH AFTER 48 HOURS Hirsch/IV: Voiding Method Toilet IV Catheter Type [Left Upper Peripheral IV arm] Active Medications - Current Medications Current Medications: Generic Name Dose Route Start Last Admin Trade Name Freq PRN Reason Stop Dose Admin Acetaminophen 650 mg 11/03/20 22:21 Acetaminophen 325 Mg Tab PO Q4H PRN Pain MILD(1-3)/Fever >100.5/LEES Albuterol/Ipratropium 1 ampul 11/04/20 02:00 11/06/20 08:36 Ipratropium/Albuterol Sulfate 3 Ml Ampul.Neb IH 1 ampul Q6HRT LAWRENCE Administration Furosemide 40 mg 11/06/20 06:00 11/06/20 05:31 Furosemide 40 Mg/4 Ml Inj IV 40 mg DAILY@0600 LAWRENCE Administration Magnesium Hydroxide 30 ml 11/03/20 22:51 Magnesium Hydroxide (Mom) Oral Liqd Udc PO Q4H PRN Constipation Metoprolol Tartrate 12.5 mg 11/04/20 22:00 11/05/20 22:32 Metoprolol Tartrate 25 Mg Tab PO 12.5 mg BID LAWRENCE Administration Morphine Sulfate 2 mg 11/03/20 22:51 11/04/20 15:24 Morphine 2 Mg/1 Ml Inj IV 2 mg Q4H PRN Administration Pain, Moderate (4-6) Ondansetron HCl 4 mg 11/03/20 22:21 11/04/20 15:24 Ondansetron 4 Mg/2 Ml Inj IV 4 mg Q8H PRN Administration Nausea And Vomiting Prednisone 0 mg 11/06/20 10:00 Prednisone 20 Mg Tab PO QDAY LAWRENCE Rivaroxaban 20 mg 11/05/20 10:00 11/05/20 10:19 Rivaroxaban 20 Mg Tab PO 20 mg QDAY LAWRENCE Administration Protocol Sodium Chloride 10 ml 11/04/20 10:00 11/05/20 22:33 Sodium Chloride 0.9% 10 Ml Flush Syringe IV 10 ml BID LAWRENCE Administration Sodium Chloride 10 ml 11/03/20 23:06 Sodium Chloride 0.9% 10 Ml Flush Syringe IV PRN PRN LINE FLUSH
[2020-11-06] MEDS: predniSONE 20 MG TAB PO SCH (09:59)
[2020-11-06] MEDS: METOPROLOL TARTRATE 25 MG TAB PO SCH ×2 (10:01→22:06)
[2020-11-06] MEDS: RIVAROXABAN 20 MG TAB PO SCH (10:02)
--- NOTE | 2020-11-06 11:05 | Progress Note ---
Assessment and Plan Pt appears clinically improved, nearing/at euvolemia. Currently stable cardiac status. Pt may discharge from cardiology standpoint on home cardiac regimen. Recommend pt follow up in our office with Dr. Courtney Bruno within 1-2 weeks of discharge ([phone]). The patient has been seen in conjunction with Dr. Courtney Bruno who agrees with the assessment and plan of care. - Patient Problems (1) Acute on chronic respiratory failure Current Visit: Yes Status: Acute Qualifiers: Respiratory failure complication: hypoxia Qualified Code(s): J96.21 - Acute and chronic respiratory failure with hypoxia (2) COPD with exacerbation Current Visit: Yes Status: Acute (3) Acute heart failure with preserved ejection fraction (HFpEF) Current Visit: Yes Status: Acute (4) Paroxysmal atrial fibrillation Current Visit: Yes Status: Chronic (5) HTN (hypertension) Current Visit: Yes Status: Chronic Qualifiers: Hypertension type: essential hypertension Qualified Code(s): I10 - Essential (primary) hypertension (6) HIV (human immunodeficiency virus infection) Current Visit: Yes Status: Chronic Qualifiers: HIV symptom status: asymptomatic Qualified Code(s): Z21 - Asymptomatic human immunodeficiency virus [HIV] infection status (7) History of DVT (deep vein thrombosis) Current Visit: Yes Status: Chronic (8) Pulmonary hypertension Current Visit: Yes Status: Chronic (9) Moderate tricuspid regurgitation Current Visit: Yes Status: Chronic (10) Sleep apnea Current Visit: Yes Status: Chronic Qualifiers: Sleep apnea type: obstructive Qualified Code(s): G47.33 - Obstructive sleep apnea (adult) (pediatric) (11) Morbid obesity Current Visit: Yes Status: Chronic Subjective Date of service: 11/06/20 Principal diagnosis: respiratory failure Interval history: pt resting in bed, feeling better, on O2 via NC. in SR on tele. Objective Last Vital Signs Temp 98.3 F 11/06/20 08:17 Pulse 72 11/06/20 10:01 Resp 19 11/06/20 08:36 BP 130/70 11/06/20 10:01 Pulse Ox 97 11/06/20 08:25 - Physical Examination General: No Apparent Distress HEENT: Positive: PERRL Neck: Positive: neck supple, trachea midline Cardiac: Positive: Reg Rate and Rhythm, S1/S2 Lungs: Positive: Decreased Breath Sounds Neuro: Positive: Grossly Intact Abdomen: Negative: Tender Skin: Negative: Rash Musculoskeletal: No Pain - Labs and Meds Comprehensive Metabolic Panel 11/06/20 Range/Units 04:36 Sodium 142 (137-145) mmol/L Potassium 5.2 H (3.6-5.0) mmol/L Chloride 87.9 L (98-107) mmol/L Carbon Dioxide 49 H* (22-30) mmol/L BUN 32 H (7-17) mg/dL Creatinine 0.8 (0.6-1.2) mg/dL Glucose 127 H (65-100) mg/dL Calcium 9.6 (8.4-10.2) mg/dL - Imaging and Cardiology EKG: report reviewed, image reviewed Echo: report reviewed (03/2020 showed EF 60-65%, impaired relaxation, mild LVH, RV mildy dilated, mod pulm HTN with RVSP 68mmHg, mod TR, mild to mod MR.) - Telemetry EKG Rhythm: Sinus Rhythm - EKG Sinus rhythms and dysrhythmias: sinus rhythm AV and intraventricular conduction: intraventricular conducti
[2020-11-06] MEDS: guaiFENesin 100 MG/5 ML ORAL LIQD PO PRN ×2 (13:00→22:06)
--- NOTE | 2020-11-06 13:05 | Progress Note ---
Assessment and Plan 45 y/o female with CHF, COPD, pulm HTN and likely untreated/undiagnosed BRIAN with likely OHS 1. Continue diuresis. 2. Please change to Prednisone 60 daily and tapers as follows: 60 daily for 2 days, 40 daily for 3 days, 20 daily for 3 days, 10 daily for 3 days then stop. 3. She never followed up with us post discharge. Will sign off. Subjective Date of service: 11/06/20 Principal diagnosis: respiratory failure Interval history: Reviewed IMS note. Pulm status is stable Objective Vital Signs - 12hr 11/06/20 11/06/20 11/06/20 02:00 03:05 08:17 Temperature 98.5 F 98.3 F Pulse Rate 74 71 78 Pulse Rate [ Bilateral Throughout] Respiratory 24 19 20 Rate Respiratory Rate [Bilateral Throughout] Blood Pressure 150/70 122/66 130/62 O2 Sat by Pulse 76 L 89 90 Oximetry 11/06/20 11/06/20 11/06/20 08:25 08:36 10:01 Temperature Pulse Rate 72 Pulse Rate [ 83 Bilateral Throughout] Respiratory Rate Respiratory 19 Rate [Bilateral Throughout] Blood Pressure 130/70 O2 Sat by Pulse 97 Oximetry CBC and BMP: 11/05/20 04:56 11/06/20 04:36 ABG, PT/INR, D-dimer: ABG ABG pH 7.329 pH Units (7.350-7.450) L 11/05/20 11:18 ABG pCO2 108.4 mm Hg 11/05/20 11:18 ABG pO2 43.9 mm Hg (80.0-90.0) L 11/05/20 11:18 ABG O2 Saturation 77.9 % (95.0-99.0) L 11/05/20 11:18 PT/INR, D-dimer PT 13.5 Sec. (12.2-14.9) 11/04/20 04:44 INR 1.04 (0.87-1.13) 11/04/20 04:44 Abnormal lab findings: Abnormal Labs 11/03/20 11/03/20 11/03/20 00:44 19:51 19:51 RBC 5.12 H Hct 43.1 H MCH 24 L MCHC 29 L RDW 16.4 H Seg Neuts % (Manual) 79.0 H Lymphocytes % (Manual) 7.0 L Monocytes % (Manual) 11.0 H Nucleated RBC % 3.0 H Lymphocytes # (Manual) 0.6 L Monocytes # (Manual) 1.0 H ABG pH 7.265 L ABG pO2 65.7 L ABG HCO3 51.5 H ABG O2 Saturation 90.9 L ABG Base Excess 19.7 H ABG Hemoglobin 11.4 L Oxyhemoglobin 88.1 L Sodium 135 L Potassium 5.5 H Chloride 90.5 L Carbon Dioxide 38 H BUN 28 H Glucose POC Glucose NT-Pro-B Natriuret Pep 11/03/20 11/03/20 11/04/20 19:51 22:25 04:44 RBC Hct MCH MCHC RDW Seg Neuts % (Manual) Lymphocytes % (Manual) Monocytes % (Manual) Nucleated RBC % Lymphocytes # (Manual) Monocytes # (Manual) ABG pH ABG pO2 ABG HCO3 ABG O2 Saturation ABG Base Excess ABG Hemoglobin Oxyhemoglobin Sodium Potassium 5.1 H 5.7 H Chloride 90.7 L Carbon Dioxide 50 H* D BUN 26 H Glucose 117 H POC Glucose NT-Pro-B Natriuret Pep 982.4 H 11/04/20 11/04/20 11/04/20 08:10 09:27 12:46 RBC Hct MCH MCHC RDW Seg Neuts % (Manual) Lymphocytes % (Manual) Monocytes % (Manual) Nucleated RBC % Lymphocytes # (Manual) Monocytes # (Manual) ABG pH 7.305 L ABG pO2 ABG HCO3 50.6 H ABG O2 Saturation ABG Base Excess 19.8 H ABG Hemoglobin 11.2 L Oxyhemoglobin 93.7 L Sodium Potassium 5.5 H Chloride Carbon Dioxide BUN Glucose POC Glucose 148 H NT-Pro-B Natriuret Pep 11/05/20 11/05/20 11/05/20 04:56 04:56 11:18 RBC Hct MCH 25 L MCHC 28 L RDW 16.5 H Seg Neuts % (Manual) Lymphocytes % (Manual) Monocytes % (Manual) Nucleated RBC % Lymphocytes # (Manual) Monocytes # (Manual) ABG pH 7.329 L ABG pO2 43.9 L ABG HCO3 55.8 H ABG O2 Saturation 77.9 L ABG Base Excess 24.7 H ABG Hemoglobin 11.1 L Oxyhemoglobin 75.8 L Sodium Potassium 5.5 H Chloride 90.3 L Carbon Dioxide 47 H* BUN 37 H Glucose 117 H POC Glucose NT-Pro-B Natriuret Pep 11/06/20 04:36 RBC Hct MCH MCHC RDW Seg Neuts % (Manual) Lymphocytes % (Manual) Monocytes % (Manual) Nucleated RBC % Lymphocytes # (Manual) Monocytes # (Manual) ABG pH ABG pO2 ABG HCO3 ABG O2 Saturation ABG Base Excess ABG Hemoglobin Oxyhemoglobin Sodium Potassium 5.2 H Chloride 87.9 L Carbon Dioxide 49 H* BUN 32 H Glucose 127 H POC Glucose NT-Pro-B Natriuret Pep
[2020-11-07] MEDS: IPRATROPIUM/ALBUTEROL SULFATE 3 ML AMPUL.NEB IH SCH ×3 (01:33→13:58)
[2020-11-07 05:57] LABS: Mean Corpuscular HGB Conc 29 % (30-34); Mean Corpuscular Volume 83 fl (79-97); Platelet Count 254 K/mm3 (140-440); Red Blood Count 4.65 M/mm3 (3.65-5.03); Red Cell Distribution Width 16.5 % (13.2-15.2)
[2020-11-07 05:58] LABS: Hematocrit 38.6 % (30.3-42.9); Hemoglobin 11.2 gm/dl (10.1-14.3)
[2020-11-07 06:08] LABS: BUN/Creatinine Ratio 35; Blood Urea Nitrogen 28 mg/dL (7-17); Calcium 9.5 mg/dL (8.4-10.2); Hemolysis Index 2
[2020-11-07] MEDS: FUROSEMIDE 40 MG/4 ML INJ IV SCH (07:10)
[2020-11-07] MEDS: METOPROLOL TARTRATE 25 MG TAB PO SCH (10:02)
[2020-11-07] MEDS: predniSONE 20 MG TAB PO SCH (10:03)
[2020-11-07] MEDS: RIVAROXABAN 20 MG TAB PO SCH (10:04)
[2020-11-07] MEDS: guaiFENesin 100 MG/5 ML ORAL LIQD PO PRN (10:07)
--- NOTE | 2020-11-07 10:33 | Discharge Summary ---
Providers - Providers Date of Admission: 11/04/20 08:36 Attending physician: LEONEL MALLORY MD 11/03/20 22:51 Consult to Physician [CONS] Routine Comment: Consulting Provider: NEO ERICKSON Physician Instructions: Reason For Exam: CHF EXACERBATION 11/06/20 09:12 Consult to Case Management [CONS] Routine Services Needed at Discharge: DME Equipment Notified:: NO Additional Physician Instructions: TRILOGY FOR DISCHARGE Primary care physician: PC TECHNICIAN Hospitalization Reason for admission: shortness of breath Condition: Fair Hospital course: 45-year-old female with known history of CHF, COPD, hypertension, HIV, sleep apnea, pulmonary hypertension and paroxysmal atrial fibrillation presenting to the emergency room today with a 1 week history of shortness of breath. She has had some mild cough which is nonproductive. She denies any chest pain, no fever or chills, denies any sick contacts and no contact with anyone with COVID-19. Patient denies any headache or dizziness, no nausea or vomiting, no abdominal pain, no hematuria or dysuria. Upon arrival of EMS oxygen saturation was said to be in the 70s and she was subsequently placed on CPAP with minimal improvement of oxygen saturation to about 81%. Work-up in the emergency room today chest x-ray compatible with volume overload. Patient being admitted for CHF exacerbation, respiratory failure. 11/04 patient is somnolent but easily aroused, she is on BiPAP, ABG results reviewed, pulmonary consulted. Cardiology note reviewed. Lab results reviewed Unable to perform review of systems as the patient is somnolent 11/06: Patient seen and examined this morning we will bring her oxygen flow to 4 L and monitor her saturation closely. Of discussed with nursing staff. She was hypotensive on admission and this has seemed to resolved all her home medication has been restarted we will also monitor closely to ensure no further hypotension noted. I have also gone ahead to change steroids to p.o. while monitoring metabolic alkalosis and hyperkalemia. She refused Kayexalate dose initially we will give another dose and have discussed the importance of this with the patient. Defer to cardiology if patient should be changed to Bumex rather than Lasix. Patient informs me that she does have a trilogy and has had it for a few months already at home. Anticipate discharge in a.m. Assessment and plan 11/07:Pt appears clinically improved, nearing/at euvolemia. I had extensive discussion with with the patient about compliance with follow up, I Encouraged her to continue with her CPAP for BRIAN. she is stable with her oxygen at 4 liters (1) Acute on chronic respiratory failure Current Visit: Yes Status: Acute Qualifiers: Respiratory failure complication: hypoxia Qualified Code(s): J96.21 - Acute and chronic respiratory failure with hypoxia (2) COPD with exacerbation Current Visit: Yes Status: Acute (3) Acute heart failure with preserved ejection fraction (HFpEF) Current Visit: Yes Status: Acute (4) Paroxysmal atrial fibrillation Current Visit: Yes Status: Chronic (5) HTN (hypertension) Current Visit: Yes Status: Chronic Qualifiers: Hypertension type: essential hypertension Qualified Code(s): I10 - Essential (primary) hypertension (6) HIV (human immunodeficiency virus infection) Current Visit: Yes Status: Chronic Qualifiers: HIV symptom status: asymptomatic Qualified Code(s): Z21 - Asymptomatic human immunodeficiency virus [HIV] infection status (7) History of DVT (deep vein thrombosis) Current Visit: Yes Status: Chronic (8) Pulmonary hypertension Current Visit: Yes Status: Chronic (9) Moderate tricuspid regurgitation Current Visit: Yes Status: Chronic (10) Sleep apnea Current Visit: Yes Status: Chronic Qualifiers: Sleep apnea type: obstructive Qualified Code(s): G47.33 - Obstructive sleep apnea (adult) (pediatric) (11) Morbid obesity Current Visit: Yes Status: Chronic Disposition: DC/TX-06 HOME UNDER HOME HLTH Time spent for discharge: 35 mins Core Measure Documentation - Palliative Care Palliative Care/ Comfort Measures: Not Applicable - Core Measures Any of the following diagnoses?: none Exam - Physical Exam Narrative exam: VITAL SIGNS: Reviewed. GENERAL: The patient appears normally developed, morbidly obese baseline shortness of breath vital signs as documented. HEAD: No signs of head trauma. EYES: Pupils are equal. Extraocular motions intact. EARS: Hearing grossly intact. MOUTH: Oropharynx is normal. NECK: No adenopathy, no JVD. CHEST: Chest with diminished breath sounds bilaterally. No wheezes, rales, or rhonchi. CARDIAC: Regular rate and rhythm. S1 and S2, without murmurs, gallops, or rubs. VASCULAR: No Edema. Peripheral pulses normal and equal in all extremities. ABDOMEN: Soft, non tender and non distended. No rebound or guarding, and no masses palpated. Bowel Sounds normal. MUSCULOSKELETAL: Good range of motion of all major joints. Extremities without clubbing, cyanosis.mild chronic venous changes noted. NEUROLOGIC EXAM: Alert and oriented x 3 No focal sensory or strength defic its. Speech normal. Follows commands. PSYCHIATRIC: Mood normal. SKIN: detail exam as documented in skin assessment - Constitutional Vitals: Temp Pulse Resp BP Pulse Ox 98.5 F 107 H 22 122/69 96 11/07/20 07:32 11/07/20 10:02 11/07/20 08:39 11/07/20 10:02 11/07/20 08:51 Plan Activity: advance as tolerated, fall precautions Diet: low fat Special Instructions: physical therapy, occupational therapy, home oxygen via (nasal cannula @ 3 liters per minute) Follow up with: PRIMARY CARE, [Primary Care Provider] - 7 Days NEO ERICKSON MD [Staff Physician] - 7 Days PAUL STRINGER MD [Staff Physician] - 7 Days Prescriptions: Furosemide [Lasix TAB] 80 mg PO QDAY #30 predniSONE 10 mg PO .TAPER #21 tab Albuterol Mdi (or & Nicu Only) [ProAir HFA Inhaler] 2 puff IH QID PRN #1 PRN Reason: Shortness Of Breath
[2020-11-07 12:56] VITALS: BP 130/77
[2020-11-09] MEDS ORDERED: predniSONE 20 MG TAB PO SCH (10:00)
[2020-11-12] MEDS ORDERED: predniSONE 20 MG TAB PO SCH (10:00)
[2020-11-15] MEDS ORDERED: predniSONE 10 MG TAB PO SCH (10:00)
== END 2020-11-07 18:05 | disposition home or self-care (01) | DRG 189 ==
LOC: ED 18:13 → 4A 22:21 → IMCU 11-04 01:37 → OBSVTOIN 11-04 08:36 → 4A 11-05 23:19
PROVIDERS: ADMIT Internal Medicine Geriatric Medicine; ATTEND Internal Medicine
PROC: 4A033R1 Measurement of Arterial Saturation, Peripheral, Percutaneous Approach (ICD-10-PCS; principal; 2020-11-03)
PROC: 5A09357 Assistance with Respiratory Ventilation, Less than 24 Consecutive Hours, Continuous Positive Airway Pressure (ICD-10-PCS; 2020-11-03)
DX: J96.21 Acute and chronic respiratory failure with hypoxia (principal); I11.0 Hypertensive heart disease with heart failure; I50.33 Acute on chronic diastolic (congestive) heart failure; E66.01 Morbid (severe) obesity due to excess calories; E87.5 Hyperkalemia; J44.1 Chronic obstructive pulmonary disease with (acute) exacerbation; G47.33 Obstructive sleep apnea (adult) (pediatric); I07.1 Rheumatic tricuspid insufficiency; I27.20 Pulmonary hypertension, unspecified; Z21 Asymptomatic human immunodeficiency virus [HIV] infection status; I48.0 Paroxysmal atrial fibrillation; Z68.44 Body mass index [BMI] 60.0-69.9, adult; Z79.82 Long term (current) use of aspirin; Z79.01 Long term (current) use of anticoagulants; Z87.891 Personal history of nicotine dependence; Z86.718 Personal history of other venous thrombosis and embolism
CPT/HCPCS: 36415; 36600; 71045; 80048; 82803; 82962; 83880; 84132; 85007; 85025; 85027; 85610; 87040; 93005; 94640; 94760; G0378; J0456; J0610; J0696; J1644; J1940; J2270; J2405; J2920; J2930; J3475; J7050; J7512

== ENCOUNTER 2022-05-14 23:51 | Emergency (ER) | payer MEDICAID ==
[2022-05-15] MEDS ORDERED: IPRATROPIUM 0.02% NEBU 2.5 ML IH ONE (00:28)
[2022-05-15] MEDS ORDERED: ALBUTEROL 2.5 MG/3 ML NEBU IH ONE (00:28)
[2022-05-15] MEDS ORDERED: FUROSEMIDE 40 MG/4 ML INJ IV ONE (00:53)
[2022-05-15] MEDS ORDERED: methylPREDNISolone Sod Succinate 125 MG/2 ML INJ IV ONE (00:53)
--- NOTE | 2022-05-15 01:34 | XRay Report ---
CHEST 1 VIEW 05/15/2022 12:21 AM INDICATION / CLINICAL INFORMATION: Dyspnea. COMPARISON: 04/04/2022 FINDINGS: SUPPORT DEVICES: None. HEART / MEDIASTINUM: No significant abnormality. LUNGS / PLEURA: No significant pulmonary or pleural abnormality. No pneumothorax. ADDITIONAL FINDINGS: No significant additional findings. IMPRESSION: 1. No acute findings. Signer Name: Rupert Ludwig DO Signed: 05/15/2022 1:30 AM Workstation Name: [id number]
[2022-05-15 01:38] LABS: Basophils # (Auto) 0.1 K/mm3 (0.0-0.1); Basophils % (Auto) 0.7 % (0.0-1.8); Eosinophils # (Auto) 0.3 K/mm3 (0.0-0.4); Eosinophils % (Auto) 2.8 % (0.0-4.3); Lymphocytes # (Auto) 1.4 K/mm3 (1.2-5.4); Lymphocytes % (Auto) 13.6 % (13.4-35.0); Mean Corpuscular HGB Conc 30 % (30-34); Mean Corpuscular Volume 87 fl (79-97); Monocytes # (Auto) 0.7 K/mm3 (0.0-0.8); Monocytes % (Auto) 6.6 % (0.0-7.3); Platelet Count 177 K/mm3 (140-440); Red Blood Count 3.96 M/mm3 (3.65-5.03); Red Cell Distribution Width 15.9 % (13.2-15.2)
[2022-05-15 01:40] LABS: Hematocrit 34.6 % (30.3-42.9); Hemoglobin 10.3 gm/dl (10.1-14.3)
[2022-05-15 01:48] LABS: INR 0.83 (0.87-1.13)
[2022-05-15 02:03] LABS: Creatine Kinase MB 2.4 ng/mL (0.0-4.0)
[2022-05-15 02:05] LABS: Alanine Aminotransferase 16 units/L (7-56); Albumin 3.7 g/dL (3.9-5); BUN/Creatinine Ratio 23; Blood Urea Nitrogen 30 mg/dL (7-17); Calcium 9.5 mg/dL (8.4-10.2); Hemolysis Index 6
--- NOTE | 2022-05-15 03:10 | Emergency Department Report ---
ED Shortness of Breath HPI - General Chief Complaint: Dyspnea/Respdistress Stated Complaint: SANDRA Time Seen by Provider: 05/15/22 00:28 Source: patient, EMS Mode of arrival: Stretcher Limitations: Physical Limitation - History of Present Illness Initial Comments: 47 years old with chf and copd and hiv with sob Worsening SANDRA symptoms tonight. Arrived with non-rebreather on. Complaint: shortness of breath -: hour(s) Improves With: oxygen Worsens With: exertion Known History Of: COPD, congestive heart failure - Related Data Home Medications Medication Instructions Recorded Confirmed Last Taken Dolutegravir [Tivicay] 50 mg PO DAILY 04/12/20 04/04/22 04/02/22 Emtricitabine/Tenofov Alafenam 1 each PO DAILY 11/05/20 04/04/22 04/02/22 [Descovy 200-25 mg Tablet] Ferrous Sulfate [Iron 325 MG] 325 mg PO DAILY 11/05/20 04/04/22 04/02/22 Diclofenac 1% [Diclofenac 1% 2 gm TP QDAY 04/05/22 04/05/22 04/02/22 topical gel] Multivit-Minerals/Folic Acid 200 mcg PO QDAY 04/05/22 04/05/22 04/02/22 [Multivitamin Gummies] Previous Rx's Medication Instructions Recorded Last Taken Type Albuterol Mdi (or & Nicu Only) 2 puff IH QID PRN #1 can 04/05/22 Unknown Rx [ProAir HFA Inhaler] Budesonide/Formoterol Fumarate 2 puff IH BID #1 can 04/05/22 Unknown Rx [Symbicort 160-4.5 Mcg Inhaler] Famotidine [Pepcid] 20 mg PO QDAY #30 tablet 04/05/22 Unknown Rx Metoprolol [Lopressor TAB] 12.5 mg PO BID #30 tablet 04/05/22 Unknown Rx Rivaroxaban [Xarelto] 20 mg PO QDAY #30 tablet 04/05/22 Unknown Rx Torsemide [Demadex] 20 mg PO DAILY #30 tab 04/05/22 Unknown Rx Allergies Allergy/AdvReac Type Severity Reaction Status Date / Time No Known Allergies Allergy Verified 04/05/22 10:55 ED Review of Systems ROS: Stated complaint: SANDRA Other details as noted in HPI Constitutional: denies: chills, fever Eyes: denies: eye pain, eye discharge, vision change ENT: denies: ear pain, throat pain Respiratory: denies: cough, shortness of breath, wheezing Cardiovascular: denies: chest pain, palpitations Endocrine: no symptoms reported Gastrointestinal: denies: abdominal pain, nausea, diarrhea Genitourinary: denies: urgency, dysuria, discharge Musculoskeletal: denies: back pain, joint swelling, arthralgia Skin: denies: rash, lesions Neurological: denies: headache, weakness, paresthesias Psychiatric: denies: anxiety, depression Hematological/Lymphatic: denies: easy bleeding, easy bruising ED Past Medical Hx - Past Medical History Previous Medical History?: Yes Hx Hypertension: Yes Hx Heart Attack/AMI: No Hx Congestive Heart Failure: Yes Hx Diabetes: No Hx Deep Vein Thrombosis: Yes Hx Pulmonary Embolism: No Hx Asthma: Yes Hx COPD: Yes Hx Tuberculosis: No Hx HIV: Yes Additional medical history: Lymphoma, DVT - Surgical History Past Surgical History?: Yes Hx Coronary Stent: No Hx Pacemaker: No Hx Internal Defibrillator: No Additional Surgical History: tumor removal in the chest 2013 - Social History Smoking Status: Never Smoker Substance Use Type: None - Medications Home Medications: Home Medications Medication Instructions Recorded Confirmed Last Taken Type Dolutegravir [Tivicay] 50 mg PO DAILY 04/12/20 04/04/22 04/02/22 History Emtricitabine/Tenofov Alafenam 1 each PO DAILY 11/05/20 04/04/22 04/02/22 History [Descovy 200-25 mg Tablet] Ferrous Sulfate [Iron 325 MG] 325 mg PO DAILY 11/05/20 04/04/22 04/02/22 History Albuterol Mdi (or & Nicu Only) 2 puff IH QID PRN #1 can 04/05/22 Unknown Rx [ProAir HFA Inhaler] Budesonide/Formoterol Fumarate 2 puff IH BID #1 can 04/05/22 Unknown Rx [Symbicort 160-4.5 Mcg Inhaler] Diclofenac 1% [Diclofenac 1% 2 gm TP QDAY 04/05/22 04/05/22 04/02/22 History topical gel] Famotidine [Pepcid] 20 mg PO QDAY #30 tablet 04/05/22 Unknown Rx Metoprolol [Lopressor TAB] 12.5 mg PO BID #30 tablet 04/05/22 Unknown Rx Multivit-Minerals/Folic Acid 200 mcg PO QDAY 04/05/22 04/05/22 04/02/22 History [Multivitamin Gummies] Rivaroxaban [Xarelto] 20 mg PO QDAY #30 tablet 04/05/22 Unknown Rx Torsemide [Demadex] 20 mg PO DAILY #30 tab 04/05/22 Unknown Rx ED Physical Exam - General Limitations: Physical Limitation General appearance: alert, obese - Head Head exam: Present: atraumatic, normocephalic - Eye Eye exam: Present: normal appearance - ENT ENT exam: Present: mucous membranes moist - Neck Neck exam: Present: normal inspection - Respiratory Respiratory exam: Present: normal lung sounds bilaterally, rales, rhonchi. Absent: respiratory distress - Cardiovascular Cardiovascular Exam: Present: regular rate, normal rhythm. Absent: systolic murmur, diastolic murmur, rubs, gallop - GI/Abdominal GI/Abdominal exam: Present: soft, normal bowel sounds - Extremities Exam Extremities exam: Present: normal inspection - Back Exam Back exam: Present: normal inspection - Neurological Exam Neurological exam: Present: alert, oriented X3 - Psychiatric Psychiatric exam: Present: normal affect, normal mood - Skin Skin exam: Present: warm, dry, intact, normal color. Absent: rash ED Course Vital Signs 05/15/22 05/15/22 05/15/22 00:17 00:50 03:02 Temperature 98 F Pulse Rate 115 H Pulse Rate [ 113 H Bilateral Throughout] Respiratory 18 Rate Respiratory 22 Rate [Bilateral Throughout] Blood Pressure 112/52 O2 Sat by Pulse 97 98 Oximetry ED Medical Decision Making - Lab Data Result diagrams: 05/15/22 01:11 05/15/22 01:11 - Radiology Data Radiology results: report reviewed, image reviewed - Medical Decision Making work up unremakrbal e, rt given steriods vss no distress Critical care attestation.: If time is entered above; I have spent that time in minutes in the direct care of this critically ill patient, excluding procedure time. ED Disposition Clinical Impression: Acute exacerbation of CHF (congestive heart failure), COPD (chronic obstructive pulmonary disease) Disposition: 01 HOME / SELF CARE / HOMELESS Is pt being admited?: No Does the pt Need Aspirin: No Condition: Stable Instructions: Chronic Obstructive Pulmonary Disease (ED), Heart Failure, Self Care, [id number], Chronic Obstructive Pulmonary Disease Exacerbation, [id number]
[2022-05-15 03:34] LABS: C-Reactive Protein 3.8 mg/dL (0.00-1.30)
[2022-05-15 05:32] VITALS: BP 110/58
== END 2022-05-15 05:33 | disposition home or self-care (01) ==
LOC: ED 23:51
DX: I50.9 Heart failure, unspecified (principal); J44.9 Chronic obstructive pulmonary disease, unspecified; I10 Essential (primary) hypertension
CPT/HCPCS: 36415; 71045; 80053; 82140; 82550; 82553; 83690; 83735; 83880; 84484; 85025; 85610; 86140; 94640; 96374; 96375; 99284; J1940; J2930; 94644